=== PATIENT | female | born 1955 | race Caucasian/White ===

== ENCOUNTER 2016-08-13 14:17 | Emergency (ER) | payer OTHER ==
[~2016-08-13] VITALS: Ht 167.6 cm; Wt 90.0 kg
[~2016-08-13 14:17] MED LIST: GLUCTAB PO; LEVO100T4 PO; LISI-357 PO; MELA300T PO
[2016-08-13 14:20] VITALS: BP 154/83; PULSE 66; RESP 16; TEMP 98.6; O2SAT 99
[2016-08-13] MEDS ORDERED: LEVO50TA4 PO (14:56)
[2016-08-13] MEDS ORDERED: LISI-519 PO (14:56)
[2016-08-13] MEDS ORDERED: METF500T PO (14:56)
[2016-08-13] MEDS ORDERED: TETANUS/DIPHTHERIA TOXOID ADULT 0.5 ML VIAL IM ONE (15:30)
[2016-08-13] MEDS ORDERED: BUPIVACAINE HCL PF 0.5% 10 ML VIAL INFIL ONE (15:30)
[2016-08-13] MEDS ORDERED: LIDOCAINE HCL 1% 50 ML VIAL INFIL ONE (15:30)
--- NOTE | 2016-08-13 15:30 | PD ---
HPI Chief Complaint: Laceration/Skin Injury Time Seen by Provider: 15:22 Travel History International Travel<30 days: No Contact w/Intl Traveler<30days: No Traveled to known affect area: No History of Present Illness HPI 60-year-old female presents to the emergency room for evaluation of laceration to her right fifth finger that occurred just prior to arrival. Patient closed her finger in a hinged beach chair. There is a small laceration. Patient came straight to the emergency room. She has pain to the distal phalanx. States she would not have come but she is diabetic. Pain is minimal. She is able to move it. Unknown last tetanus. PFSH Past Medical History Hx Anticoagulant Therapy: No Anxiety: Yes Heart Rhythm Problems: No Cancer: No Cardiac Catheterization: No Cardiovascular Problems: Yes (HTN, CHOL) High Cholesterol: No Congestive Heart Failure: No Diabetes: Yes Patient Takes Glucophage: Yes Diminished Hearing: No Endocrine: No Genitourinary: No Hepatitis: No Hiatal Hernia: Yes Hypertension: Yes Immune Disorder: No Neurologic: No Psychiatric: No Reproductive: Yes Respiratory: No Immunizations Current: Yes Myocardial Infarction: No Thyroid Disease: Yes Tetanus Vaccination: Unknown Influenza Vaccination: No ?: Not Menopausal: Yes Ovarian Cysts: Yes Tubal Ligation: Yes Past Surgical History AICD: No Cardiac Surgery: No Coronary Artery Bypass Graft: No Ear Surgery: No Endocrine Surgery: No Eye Surgery: No Genitourinary Surgery: No Gynecologic Surgery: Yes (1999) Joint Replacement: No Pacemaker: No Thoracic Surgery: No Tonsillectomy: Yes Other Surgery: Yes Social History Alcohol Use: No 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 Afebrile. Ambulatory. SKIN: Focused skin assessment warm/dry. Moderate ecchymosis on the volar side. The nail matrix is overlying the proximal nail fold. HEAD: Normocephalic. EYES: No scleral icterus. No injection or drainage. NECK: Supple, trachea midline. No JVD or lymphadenopathy. CARDIOVASCULAR: Regular rate and rhythm without murmurs, gallops, or rubs. RESPIRATORY: Breath sounds equal bilaterally. No accessory muscle use. EXTREMITY: Right fifth finger is tender to palpation. Less than 2 second capillary refill distally. Limited range of motion of the finger secondary to pain. Data Data Last Documented VS Vital Signs Date Time Temp Pulse Resp B/P Pulse Ox O2 Delivery O2 Flow Rate FiO2 08/13/16 14:20 98.6 66 16 154/83 99 Orders Finger ([id number]) (08/13/16 ) Tetanus/Diphtheria Tox Adult (Tetanus/Di (08/13/16 15:30) Bupivacaine Pf 0.5% Inj (Marcaine Pf 0.5 (08/13/16 15:30) Lidocaine 1% Inj (50 Ml) (Xylocaine 1% I (08/13/16 15:30) MDM Medical Decision Making Medical Screen Exam Complete: Yes Emergency Medical Condition: Yes Medical Record Reviewed: Yes Differential Diagnosis Laceration, nail avulsion, sprain, fracture Narrative Course 60-year-old female presents to the emergency room for right fifth finger pain, swelling, and bleeding after injuring it just prior to arrival. Patient was [place] the beach [place] she closed her finger in a hinged beach chair. She had immediate pain distally. Physical exam reveals moderate ecchymosis of the distal phalanx and tenderness to palpation. The nail matrix is overlying the proximal nail fold. No other laceration. X-ray shows distal tuft fracture. Patient updated on tetanus and given her first doses Keflex in the emergency room. The nail matrix was replaced under the proximal nail fold, see procedure note for details. Patient discharged with Keflex and told to follow-up with a hand surgeon or return for worsening symptoms. She understands and agrees to plan. Procedures Procedure Narrative Nail repair LOCATION: Right fifth finger REPAIR: Digital block was performed using 0.5% bupivacaine and 1% lidocaine. The wound was copiously irrigated and explored without evidence of foreign body , tendon injury or neurovascular injury. The nail matrix was folded gently under the proximal nailfold using tweezers. A sterile dressing was applied. The patient was advised to keep the dressing clean and dry. Patient tolerated the procedure well. Diagnosis Primary Impression: Open fracture of tuft of distal phalanx of finger Qualified Code: S62.639B - Open fracture of tuft of distal phalanx of finger, initial encounter Referrals: Hand Surgeon Patient Instructions: Finger Fracture (ED), General Instructions Additional Instructions: Rest and drink plenty of fluids. Take Keflex as directed, until gone. Take ibuprofen with food as directed, as needed for pain. Elevate and apply ice to the affected area for 20 minutes at a time, as needed for pain and swelling. Follow-up with a hand surgeon. Return to the emergency room for worsening symptoms. Med/Other Pt SpecificInfo: Prescription(s) given Disposition: 01 DISCHARGE HOME Condition: Stable Ivanna Stanford Aug 13, 2016 15:30
--- NOTE | 2016-08-13 16:03 | RADRPT ---
EXAM DATE/TIME: 08/13/2016 15:30 [facility] COMPARISON: No previous studies available for comparison. INDICATIONS : Right 5th finger tip caught in folding chair MEDICAL HISTORY : Diabetes mellitus type II. SURGICAL HISTORY : None. ENCOUNTER: Initial ACUITY: 1 day PAIN SCORE: 5/10 LOCATION: Right 5th finger FINDINGS: There is a transverse fracture through the distal tuft of the fifth distal phalanx. Significant displ acement is not seen. The fracture is 1 mm in thickness. There is some degenerative change at the base of the first and fifth metacarpals. CONCLUSION: Acute transverse fracture through the distal tuft of the distal fifth phalanx. Ibrahima Bowman MD on August 13, 2016 at 15:58 Board Certified Radiologist. This report was verified electronically.
[2016-08-13] MEDS ORDERED: CEPH-460 PO (16:35)
[2016-08-13] MEDS ORDERED: CEPHALEXIN MONOHYDRATE 500 MG CAP PO ONE (16:45)
== END 2016-08-13 17:15 | disposition home or self-care (01) ==
LOC: PHEFT 14:17
DX: S62.639B Displaced fracture of distal phalanx of unspecified finger, initial encounter for open fracture (principal); I10 Essential (primary) hypertension; E78.00 Pure hypercholesterolemia, unspecified; E11.9 Type 2 diabetes mellitus without complications; E07.9 Disorder of thyroid, unspecified; Z88.0 Allergy status to penicillin; W22.8XXA Striking against or struck by other objects, initial encounter
CPT/HCPCS: 64450; 73140; 90471; 90714

== ENCOUNTER 2017-01-17 12:50 | Observation (INO) | payer OTHER ==
[~2017-01-17] VITALS: Ht 172.7 cm; Wt 87.2 kg
[2017-01-17] VITALS (9 sets, daily range): BP systolic 159–200; BP diastolic 72–104; PULSE 51–72; RESP 16–20; TEMP 98–98.8; O2SAT 95–99
[~2017-01-17 12:50] MED LIST changes: +CEPH-460 PO; -GLUCTAB PO; -LEVO100T4 PO; +LEVO50TA4 PO; -LISI-357 PO; +LISI-519 PO; -MELA300T PO; +METF500T PO
[2017-01-17] MEDS ORDERED: HYDROmorphone HCL PF 0.5 MG/0.5 ML SYRINGE IV PUSH ONE (13:15)
[2017-01-17] MEDS ORDERED: SODIUM CHLOR 0.9% 1000 ML INJ 1,000 ML IV ONE ×2 (13:15→15:45)
[2017-01-17] MEDS ORDERED: SODIUM CHLORIDE 0.9% FLUSH 10 ML FLUSH IV FLUSH PRN (13:15)
[2017-01-17] MEDS ORDERED: ONDANSETRON HCL 4 MG/2 ML VIAL IM ONE (13:15)
--- NOTE | 2017-01-17 13:18 | PD ---
HPI Chief Complaint: GI Complaint Time Seen by Provider: 13:03 Travel History International Travel<30 days: No Contact w/Intl Traveler<30days: No Traveled to known affect area: No History of Present Illness HPI This 61-year-old female is complaining of vomiting. She says she's been sick since Sunday and has been vomiting everything since then. She is unable to hold down liquids. She has not been able to retain her medication. She does have a history of hypertension and her blood pressure is elevated. There has not been any diarrhea. She says she's had fever as high as 101.8 she is having some epigastric abdominal pain. She had a laparoscopic gastric sleeve surgery in July 2015. There are no complications at the time of the surgery she has had an 80 pound weight loss since then. She does have a history of diabetes but her diabetes medications have been tapered recently. She is having pain in her back and somewhat diffuse myalgias. She has not had a bowel movement in several days. She does not recall having discomfort like this before. She says the pain is quite severe. She has not had a sore throat or cough PFSH Past Medical History Hx Anticoagulant Therapy: No Anxiety: Yes Heart Rhythm Problems: No Cancer: No Cardiac Catheterization: No Cardiovascular Problems: Yes (HTN, CHOL) High Cholesterol: No Congestive Heart Failure: No Diabetes: Yes Diminished Hearing: No Endocrine: No Genitourinary: No Hepatitis: No Hiatal Hernia: Yes Hypertension: Yes Immune Disorder: No Neurologic: No Psychiatric: No Reproductive: Yes Respiratory: No Immunizations Current: Yes Myocardial Infarction: No Thyroid Disease: Yes Menopausal: Yes Ovarian Cysts: Yes Tubal Ligation: Yes Past Surgical History AICD: No Cardiac Surgery: No Coronary Artery Bypass Graft: No Ear Surgery: No Endocrine Surgery: No Eye Surgery: No Genitourinary Surgery: No Gynecologic Surgery: Yes (1999) Joint Replacement: No Pacemaker: No Thoracic Surgery: No Tonsillectomy: Yes Other Surgery: Yes Social History Alcohol Use: No 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) Substance Use: No Allergies-Medications (Allergen,Severity, Reaction): Coded Allergies: penicillin G (Unverified Allergy, Mild, HIVES, 10/03/16) Reported Meds & Prescriptions Reported Meds & Active Scripts Active Reported Amlodipine (Amlodipine Besylate) 10 Mg Tab 10 Mg PO DAILY Metformin (Metformin HCl) 500 Mg Tab 500 Mg PO DAILY With a meal Levothyroxine (Levothyroxine Sodium) 50 Mcg Tab 50 Mcg PO DAILY Review of Systems General / Constitutional: Positive: Fever Eyes: No: Diploplia, Blurred Vision HENT: No: Headaches, Vertigo Cardiovascular: No: Chest Pain or Discomfort, Palpitations Respiratory: No: Cough, Shortness of Breath Gastrointestinal: Positive: Nausea, Vomiting, Abdominal Pain, No: Diarrhea, Constipation Genitourinary: No: Urgency, Frequency Musculoskeletal: No: Myalgias, Arthralgias Skin: No Rash, No Itching Neurologic: No: Weakness Endocrine: No: Heat Intolerance Hematologic/Lymphatic: No: Easy Bruising Physical Exam Narrative GENERAL: Well-developed female SKIN: Focused skin assessment warm/dry. HEAD: Atraumatic. Normocephalic. EYES: Pupils equal and round. No scleral icterus. No injection or drainage. ENT: No nasal bleeding or discharge. Mucous membranes pink and moist. NECK: Trachea midline. No JVD. CARDIOVASCULAR: Regular rate and rhythm. No murmur appreciated. RESPIRATORY: No accessory muscle use. Clear to auscultation. Breath sounds equal bilaterally. GASTROINTESTINAL: Abdomen soft, there is epigastric tenderness, nondistended. Hepatic and splenic margins not palpable. MUSCULOSKELETAL: No obvious deformities. No clubbing. No cyanosis. No edema. NEUROLOGICAL: Awake and alert. No obvious cranial nerve deficits. Motor grossly within normal limits. Normal speech. PSYCHIATRIC: Appropriate mood and affect; insight and judgment normal. Data Data Last Documented VS Vital Signs Date Time Temp Pulse Resp B/P (MAP) Pulse Ox O2 Delivery O2 Flow Rate FiO2 01/17/17 14:11 96 Room Air 01/17/17 13:45 52 18 159/99 (119) 01/17/17 12:54 98.2 Orders Orders Complete Blood Count With Diff (01/17/17 13:10) Comprehensive Metabolic Panel (01/17/17 13:10) Lipase (01/17/17 13:10) Urinalysis - C+S If Indicated (01/17/17 13:10) Ct Abd/Pel W Iv Contrast(Rout) (01/17/17 13:10) Iv Access Insert/Monitor (01/17/17 13:10) Ecg Monitoring (01/17/17 13:10) Oximetry (01/17/17 13:10) Sodium Chloride 0.9% Flush (Ns Flush) (01/17/17 13:15) Ondansetron Inj (Zofran Inj) (01/17/17 13:15) Sodium Chlor 0.9% 1000 Ml Inj (Ns 1000 M (01/17/17 13:15) Hydromorphone Pf Inj (Dilaudid Pf Inj) (01/17/17 13:15) Influenzae A/B Antigen (01/17/17 13:14) Oral Contrast - Adult (01/17/17 13:17) Diatrizoate Liq ( Gastroview Liq) (01/17/17 13:35) Prochlorperazine Inj (Compazine Inj) (01/17/17 14:00) Electrocardiogram (01/17/17 13:47) Chest, Single Ap (01/17/17 13:47) Ondansetron Inj (Zofran Inj) (01/17/17 14:00) Iodixanol 320 Inj (Rad Ct) (Visipaque 32 (01/17/17 15:03) Sodium Chlor 0.9% 1000 Ml Inj (Ns 1000 M (01/17/17 15:45) Us Abdomen Gallbladder (01/17/17 15:36) Labs Laboratory Tests Test 01/17/17 13:20 01/17/17 13:25 Urine Collection Type CLEAN CATCH Urine Color YELLOW Urine Turbidity CLEAR Urine pH 6.0 Urine Specific Reynolds 1.020 Urine Protein 100 mg/dL Urine Glucose (UA) NEG mg/dL Urine Ketones 40 mg/dL Urine Occult Blood TRACE Urine Nitrite NEG Urine Bilirubin NEG Urine Leukocyte Esterase NEG Urine RBC 0-3 /hpf Urine WBC 0-2 /hpf Urine Squamous Epithelial Cells > 8 /hpf Urine Transitional Epithelial Cells 6-8 /hpf Urine Bacteria FEW /hpf Urine Mucus FEW /lpf Microscopic Urinalysis Comment CULT NOT INDICATED Urine Collection Time 13:20 White Blood Count 12.4 TH/MM3 Red Blood Count 4.81 MIL/MM3 Hemoglobin 14.6 GM/DL Hematocrit 43.2 % Mean Corpuscular Volume 89.7 FL Mean Corpuscular Hemoglobin 30.3 PG Mean Corpuscular Hemoglobin Concent 33.7 % Red Cell Distribution Width 12.0 % Platelet Count 333 TH/MM3 Mean Platelet Volume 7.9 FL Neutrophils (%) (Auto) 85.6 % Lymphocytes (%) (Auto) 11.0 % Monocytes (%) (Auto) 2.9 % Eosinophils (%) (Auto) 0.1 % Basophils (%) (Auto) 0.4 % Neutrophils # (Auto) 10.6 TH/MM3 Lymphocytes # (Auto) 1.4 TH/MM3 Monocytes # (Auto) 0.4 TH/MM3 Eosinophils # (Auto) 0.0 TH/MM3 Basophils # (Auto) 0.0 TH/MM3 CBC Comment DIFF FINAL Differential Comment Blood Urea Nitrogen 25 MG/DL Creatinine 1.50 MG/DL Random Glucose 153 MG/DL Total Protein 8.8 GM/DL Albumin 3.9 GM/DL Calcium Level 9.7 MG/DL Alkaline Phosphatase 69 U/L Aspartate Amino Transf (AST/SGOT) 20 U/L Alanine Aminotransferase (ALT/SGPT) 24 U/L Total Bilirubin 1.0 MG/DL Sodium Level 137 MEQ/L Potassium Level 3.7 MEQ/L Chloride Level 100 MEQ/L Carbon Dioxide Level 25.0 MEQ/L Anion Gap 12 MEQ/L Estimat Glomerular Filtration Rate 35 ML/MIN Lipase 247 U/L MDM Medical Decision Making Medical Screen Exam Complete: Yes Emergency Medical Condition: Yes Medical Record Reviewed: Yes Differential Diagnosis Differential includes ileus, cholecystitis, gastritis Narrative Course Hemoglobin is 14.6. White count is 12.4. BUNs is 25 with creatinine of 1.5. CT scan of the abdomen and pelvis shows mild colonic dilatation otherwise negative. Patient was given some IV fluids. She was given 0.5 mg of Dilaudid with improvement in her pain. She did not respond to 4 mg of Zofran and was given Compazine which seems to help the nausea. Case was discussed with Dr. Lombardi and he recommends that we obtain ultrasound to more definitively rule out biliary disease Diagnosis Primary Impression: Acute vomiting Jovanny Monge MD Jan 17, 2017 13:18
[2017-01-17] MEDS ORDERED: DIATRIZOATE MEGLUM/DIATRIZOATE SOD 9 ML CUP ONE (13:35)
[2017-01-17 13:39] LABS: BLOOD, URINE TRACE (NEG); GLUCOSE,URINE NEG (NEG); KETONE, URINE 40 mg/dL (NEG); NITRITE,URINE NEG (NEG)
[2017-01-17 13:40] LABS: AUTOMATED NEUTROPHIL # 10.6 TH/MM3 (1.8-7.7); BASOPHIL % 0.4 % (0.0-2.0); EOSINOPHIL % 0.1 % (0.0-4.0); HEMATOCRIT 43.2 % (35.0-46.0); HEMO FLAGS DIFF FINAL; LYMPHOCYTE # 1.4 TH/MM3 (1.0-4.8); MEAN CELL VOLUME 89.7 FL (80.0-100.0); MEAN CORPUSCULAR HEMOGLOBIN 30.3 PG (27.0-34.0); MEAN CORPUSCULAR HGB CONC 33.7 % (32.0-36.0); MONO % 2.9 % (0.0-8.0); NEUT % 85.6 % (16.0-70.0); PLATELET COUNT 333 TH/MM3 (150-450); RED BLOOD COUNT 4.81 MIL/MM3 (4.00-5.30); WHITE BLOOD COUNT 12.4 TH/MM3 (4.0-11.0)
[2017-01-17 13:43] LABS: CHLORIDE 100 MEQ/L (98-107); POTASSIUM 3.7 MEQ/L (3.5-5.1); SODIUM (NA) 137 MEQ/L (136-145)
[2017-01-17 13:47] LABS: ANION GAP 12 MEQ/L (5-15); BLOOD UREA NITROGEN 25 MG/DL (7-18)
[2017-01-17 13:50] LABS: ALT (GPT) 24 U/L (10-53); AST (GOT) 20 U/L (15-37); GLOMERULAR FILTRATION RATE 35 ML/MIN (>89)
[2017-01-17 13:53] LABS: ALKALINE PHOSPHATASE 69 U/L (45-117)
[2017-01-17 13:55] LABS: METHOD OF COLLECTION CLEAN CATCH; MUCUS URINE FEW /lpf (OCC); RBC, URINE 0-3 /hpf (0-3); SQUAMOUS EPITHELIAL CELL URINE > 8 /hpf (0-5); URINE COLOR YELLOW (YELLW/STRAW); WBC, URINE 0-2 /hpf (0-5)
[2017-01-17 13:56] LABS: BACTERIA, URINE FEW /hpf; COMMENT (UR) CULT NOT INDICATED; CULTURE IF INDICATED CULT NOT INDICATED
[2017-01-17] MEDS ORDERED: ONDANSETRON HCL 4 MG/2 ML VIAL IV PUSH ONE (14:00)
[2017-01-17] MEDS ORDERED: PROCHLORPERAZINE INJ 10 MG/2 ML VIAL IV PUSH ONE (14:00)
[2017-01-17] MEDS ORDERED: AMLO10TA2 PO (14:19)
--- NOTE | 2017-01-17 14:32 | RADRPT ---
EXAM DATE/TIME: 01/17/2017 14:00 [facility] COMPARISON: CHEST SINGLE AP, November 20, 2011, 11:41. INDICATIONS : Short of breath, nausea. MEDICAL HISTORY : None. SURGICAL HISTORY : None. ENCOUNTER: Initial ACUITY: 3 days PAIN SCORE: 0/10 LOCATION: Bilateral chest FINDINGS: Granuloma left midlung. Right lung clear.. The cardiomediastinal contours are unremarkable. Osseou s structures are intact. CONCLUSION: No acute disease. Renny George MD FACR on January 17, 2017 at 14:29 Board Certified Radiologist. This report was verified electronically.
[2017-01-17] MEDS ORDERED: IODIXANOL 320 MG/ML 10 ML VIAL (for Rad CT) IVCONTRAST ONE (15:03)
--- NOTE | 2017-01-17 15:14 | RADRPT ---
EXAM DATE/TIME: 01/17/2017 14:57 [facility] COMPARISON: CT ABDOMEN & PELVIS W CONTRAST, August 25, 2011, 0:09. INDICATIONS : Epigastric pain, nausea, vomiting and constipation. IV CONTRAST: 50 cc Visipaque (iodixanol) IV ORAL CONTRAST: Partial prescribed oral contrast ingested. RADIATION DOSE: 13.89 CTDIvol (mGy) MEDICAL HISTORY : Diabetes mellitus type 2. Hypertension. Hernia, hiatal. SURGICAL HISTORY : Tubal ligation. Gastric sleeve. ENCOUNTER: Initial ACUITY: 4 - 6 days PAIN SCALE: 7/10 LOCATION: Epigastric TECHNIQUE: Volumetric scanning of the abdomen and pelvis was performed. Using automated exposure control and ad justment of the mA and/or kV according to patient size, radiation dose was kept as low as reasonably achievable to obtain optimal diagnostic quality images. DICOM format image data is available electro nically for review and comparison. FINDINGS: The lung base is are clear. The liver, spleen, pancreas unremarkable. Previous gastric surgery is noted. The hepatic flexure is sitting between the edge of the liver and the abdominal wall. There are no inflammatory changes evident Small bowel gas pattern is unremarkable Right and left kidneys appear normal Renal glands unremarkable Pelvic contents showing fibroid uterus. Degenerative changes are present in the lumbar spine. CONCLUSION: Mild colonic dilatation probably in ascending and transverse colon Otherwise unremarkable History of previous gastric surgery. Renny George MD FACR on January 17, 2017 at 15:10 Board Certified Radiologist. This report was verified electronically.
--- NOTE | 2017-01-17 16:45 | PD ---
Physical Exam Date Seen by Provider: Jan 17, 2017 Data Data Last Documented VS Vital Signs Date Time Temp Pulse Resp B/P (MAP) Pulse Ox O2 Delivery O2 Flow Rate FiO2 01/17/17 16:19 52 18 183/91 (121) 98 Room Air 01/17/17 12:54 98.2 Orders Orders Complete Blood Count With Diff (01/17/17 13:10) Comprehensive Metabolic Panel (01/17/17 13:10) Lipase (01/17/17 13:10) Urinalysis - C+S If Indicated (01/17/17 13:10) Ct Abd/Pel W Iv Contrast(Rout) (01/17/17 13:10) Iv Access Insert/Monitor (01/17/17 13:10) Ecg Monitoring (01/17/17 13:10) Oximetry (01/17/17 13:10) Sodium Chloride 0.9% Flush (Ns Flush) (01/17/17 13:15) Ondansetron Inj (Zofran Inj) (01/17/17 13:15) Sodium Chlor 0.9% 1000 Ml Inj (Ns 1000 M (01/17/17 13:15) Hydromorphone Pf Inj (Dilaudid Pf Inj) (01/17/17 13:15) Influenzae A/B Antigen (01/17/17 13:14) Oral Contrast - Adult (01/17/17 13:17) Diatrizoate Liq ( Gastroview Liq) (01/17/17 13:35) Prochlorperazine Inj (Compazine Inj) (01/17/17 14:00) Electrocardiogram (01/17/17 13:47) Chest, Single Ap (01/17/17 13:47) Ondansetron Inj (Zofran Inj) (01/17/17 14:00) Iodixanol 320 Inj (Rad Ct) (Visipaque 32 (01/17/17 15:03) Sodium Chlor 0.9% 1000 Ml Inj (Ns 1000 M (01/17/17 15:45) Us Abdomen Gallbladder (01/17/17 15:36) Amlodipine (Norvasc) (01/17/17 16:30) Biliary Quantitative (Hida) (01/17/17 ) Consult General Surgery (01/17/17 ) Admit Order (Ed Use Only) (01/17/17 17:19) (Hub Use Only)Inp Phy Cons/Ref (01/17/17 ) Labs Laboratory Tests Test 01/17/17 13:20 01/17/17 13:25 Urine Collection Type CLEAN CATCH Urine Color YELLOW Urine Turbidity CLEAR Urine pH 6.0 Urine Specific Eaton 1.020 Urine Protein 100 mg/dL Urine Glucose (UA) NEG mg/dL Urine Ketones 40 mg/dL Urine Occult Blood TRACE Urine Nitrite NEG Urine Bilirubin NEG Urine Leukocyte Esterase NEG Urine RBC 0-3 /hpf Urine WBC 0-2 /hpf Urine Squamous Epithelial Cells > 8 /hpf Urine Transitional Epithelial Cells 6-8 /hpf Urine Bacteria FEW /hpf Urine Mucus FEW /lpf Microscopic Urinalysis Comment CULT NOT INDICATED Urine Collection Time 13:20 White Blood Count 12.4 TH/MM3 Red Blood Count 4.81 MIL/MM3 Hemoglobin 14.6 GM/DL Hematocrit 43.2 % Mean Corpuscular Volume 89.7 FL Mean Corpuscular Hemoglobin 30.3 PG Mean Corpuscular Hemoglobin Concent 33.7 % Red Cell Distribution Width 12.0 % Platelet Count 333 TH/MM3 Mean Platelet Volume 7.9 FL Neutrophils (%) (Auto) 85.6 % Lymphocytes (%) (Auto) 11.0 % Monocytes (%) (Auto) 2.9 % Eosinophils (%) (Auto) 0.1 % Basophils (%) (Auto) 0.4 % Neutrophils # (Auto) 10.6 TH/MM3 Lymphocytes # (Auto) 1.4 TH/MM3 Monocytes # (Auto) 0.4 TH/MM3 Eosinophils # (Auto) 0.0 TH/MM3 Basophils # (Auto) 0.0 TH/MM3 CBC Comment DIFF FINAL Differential Comment Blood Urea Nitrogen 25 MG/DL Creatinine 1.50 MG/DL Random Glucose 153 MG/DL Total Protein 8.8 GM/DL Albumin 3.9 GM/DL Calcium Level 9.7 MG/DL Alkaline Phosphatase 69 U/L Aspartate Amino Transf (AST/SGOT) 20 U/L Alanine Aminotransferase (ALT/SGPT) 24 U/L Total Bilirubin 1.0 MG/DL Sodium Level 137 MEQ/L Potassium Level 3.7 MEQ/L Chloride Level 100 MEQ/L Carbon Dioxide Level 25.0 MEQ/L Anion Gap 12 MEQ/L Estimat Glomerular Filtration Rate 35 ML/MIN Lipase 247 U/L [facility] Medical Record Reviewed: Yes Supervised Visit with SUMANTH: No Interpretation(s) Vital Signs Date Time Temp Pulse Resp B/P (MAP) Pulse Ox O2 Delivery O2 Flow Rate FiO2 01/17/17 16:19 52 18 183/91 (121) 98 Room Air 01/17/17 15:10 72 18 185/75 (111) 95 Room Air 01/17/17 14:11 96 Room Air 01/17/17 14:09 18 01/17/17 13:45 52 18 159/99 (119) 96 Room Air 01/17/17 12:54 98.2 56 16 200/104 (136) 99 Laboratory Tests Test 01/17/17 13:20 01/17/17 13:25 Urine Collection Type CLEAN CATCH Urine Color YELLOW (YELLW/STRAW) Urine Turbidity CLEAR (CLEAR) Urine pH 6.0 (5.0-8.5) Urine Specific Eaton 1.020 (1.002-1.035) Urine Protein 100 mg/dL (NEG-TRACE) Urine Glucose (UA) NEG mg/dL (NEG) Urine Ketones 40 mg/dL (NEG) Urine Occult Blood TRACE (NEG) Urine Nitrite NEG (NEG) Urine Bilirubin NEG (NEG) Urine Leukocyte Esterase NEG (NEG) Urine RBC 0-3 /hpf (0-3) Urine WBC 0-2 /hpf (0-5) Urine Squamous Epithelial Cells > 8 /hpf (0-5) Urine Transitional Epithelial Cells 6-8 /hpf (NONE) Urine Bacteria FEW /hpf (NONE) Urine Mucus FEW /lpf (OCC) Microscopic Urinalysis Comment CULT NOT INDICATED Urine Collection Time 13:20 White Blood Count 12.4 TH/MM3 (4.0-11.0) Red Blood Count 4.81 MIL/MM3 (4.00-5.30) Hemoglobin 14.6 GM/DL (11.6-15.3) Hematocrit 43.2 % (35.0-46.0) Mean Corpuscular Volume 89.7 FL (80.0-100.0) Mean Corpuscular Hemoglobin 30.3 PG (27.0-34.0) Mean Corpuscular Hemoglobin Concent 33.7 % (32.0-36.0) Red Cell Distribution Width 12.0 % (11.6-17.2) Platelet Count 333 TH/MM3 (150-450) Mean Platelet Volume 7.9 FL (7.0-11.0) Neutrophils (%) (Auto) 85.6 % (16.0-70.0) Lymphocytes (%) (Auto) 11.0 % (9.0-44.0) Monocytes (%) (Auto) 2.9 % (0.0-8.0) Eosinophils (%) (Auto) 0.1 % (0.0-4.0) Basophils (%) (Auto) 0.4 % (0.0-2.0) Neutrophils # (Auto) 10.6 TH/MM3 (1.8-7.7) Lymphocytes # (Auto) 1.4 TH/MM3 (1.0-4.8) Monocytes # (Auto) 0.4 TH/MM3 (0-0.9) Eosinophils # (Auto) 0.0 TH/MM3 (0-0.4) Basophils # (Auto) 0.0 TH/MM3 (0-0.2) CBC Comment DIFF FINAL Differential Comment Blood Urea Nitrogen 25 MG/DL (7-18) Creatinine 1.50 MG/DL (0.50-1.00) Random Glucose 153 MG/DL (74-106) Total Protein 8.8 GM/DL (6.4-8.2) Albumin 3.9 GM/DL (3.4-5.0) Calcium Level 9.7 MG/DL (8.5-10.1) Alkaline Phosphatase 69 U/L (45-117) Aspartate Amino Transf (AST/SGOT) 20 U/L (15-37) Alanine Aminotransferase (ALT/SGPT) 24 U/L (10-53) Total Bilirubin 1.0 MG/DL (0.2-1.0) Sodium Level 137 MEQ/L (136-145) Potassium Level 3.7 MEQ/L (3.5-5.1) Chloride Level 100 MEQ/L (98-107) Carbon Dioxide Level 25.0 MEQ/L (21.0-32.0) Anion Gap 12 MEQ/L (5-15) Estimat Glomerular Filtration Rate 35 ML/MIN (>89) Lipase 247 U/L (73-393) Last Impressions Chest X-Ray 01/17/17 1347 Signed Impressions: Service Date/Time: Tuesday, January 17, 2017 14:00 - CONCLUSION: No acute disease. Renny George MD FACR Abdomen/Pelvis CT 01/17/17 1310 Signed Impressions: Service Date/Time: Tuesday, January 17, 2017 14:57 - CONCLUSION: Mild colonic dilatation probably in ascending and transverse colon Otherwise unremarkable History of previous gastric surgery. Renny George MD FACR Narrative Course Patient signed out to me by Dr. Marrufo at change of shift, patient pending US of gallbladder and discussion with Dr. Lombardi her surgeon. Last Impressions Gall Bladder Ultrasound 01/17/17 1536 Signed Impressions: Service Date/Time: Tuesday, January 17, 2017 15:57 - CONCLUSION: Normal examination. Ibrahima Klein MD Chest X-Ray 01/17/17 1347 Signed Impressions: Service Date/Time: Tuesday, January 17, 2017 14:00 - CONCLUSION: No acute disease. Renny George MD FACR Abdomen/Pelvis CT 01/17/17 1310 Signed Impressions: Service Date/Time: Tuesday, January 17, 2017 14:57 - CONCLUSION: Mild colonic dilatation probably in ascending and transverse colon Otherwise unremarkable History of previous gastric surgery. Renny George MD FACR CT's and US unremarkable, patient reports that she is not feeling any better. Call made to Dr. Lombardi as well as Dr. Gupta's for observation for intractable abdominal pain with intractable nausea. Case reviewed with Dr. Lombardi who requested HIDA scan to be ordered. Plan to obs for intractable abdominal scan with intractable nausea and vomiting Case reviewed with Dr. Galicia who accepts pt to service Diagnosis Primary Impression: Acute vomiting Additional Impressions: Dehydration Abdominal pain Admitting Information Admitting Physician Requests: Observation Janette Burns DO Jan 17, 2017 16:45
--- NOTE | 2017-01-17 16:58 | RADRPT ---
EXAM DATE/TIME: 01/17/2017 15:57 [facility] COMPARISON: No previous studies available for comparison. INDICATIONS : Nausea/vomiting. MEDICAL HISTORY : Hypercholesterolemia. Hypertension. Hernia, hiatal. Thyroid disease. Ovarian cysts. Diabetes. Anxiety . SURGICAL HISTORY : Tubal ligation. Gastric sleeve. ENCOUNTER: Initial ACUITY: 3 days PAIN SCORE: 2/10 LOCATION: Right upper quadrant MEASUREMENTS: LIVER: 12.8 cm length COMMON DUCT: 6 mm RIGHT KIDNEY: 12.2 x 4.7 x 4.8 cm FINDINGS: LIVER: Normal echotexture without focal lesion or ductal dilatation. COMMON DUCT: No intraluminal mass or stone visualized. GALLBLADDER: Contains no stones, demonstrates no wall thickening or pericholecystic fluid. PANCREAS: The visualized portions are within normal limits. RIGHT KIDNEY: No evidence of hydronephrosis, stone, or mass. CONCLUSION: Normal examination. Ibrahima Klein MD on January 17, 2017 at 16:55 Board Certified Radiologist. This report was verified electronically.
[2017-01-17] MEDS ORDERED: PROCHLORPERAZINE INJ 10 MG/2 ML VIAL IV PRN (17:45)
[2017-01-17] MEDS ORDERED: ACETAMINOPHEN 325 MG TAB PO PRN (18:00)
[2017-01-17] MEDS: SODIUM CHLOR 0.9% 1000 ML INJ 1,000 ML IV SCH (19:02)
[2017-01-17] MEDS ORDERED: ENALAPRILAT 1.25 MG/ML VIAL IV PUSH PRN (20:30)
[2017-01-17] MEDS ORDERED: HYDROmorphone HCL PF 0.5 MG/0.5 ML SYRINGE IV PUSH PRN (20:30)
--- NOTE | 2017-01-17 20:37 | HHI.HP ---
HPI Service [facility] Hospitalists Primary Care Physician Aryan Galicia MD, PhD Admission Diagnosis Intractable abdominal pain with nausea and vomiting Chief Complaint: Intractable nausea vomiting despite outpatient medication Travel History International Travel<30 Days: No Contact w/Intl Traveler <30 Da: No Traveled to Known Affected Are: No History of Present Illness This 61-year-old female with history of lupus, diabetes, status post gastric sleeve in 2016 who is complaining of vomiting. She says she's been sick since Sunday and has been vomiting everything since then. She is unable to hold down liquids. She has not been able to retain her medication and has failed treatment with Phenergan and Zofran as outpatient. There has not been any diarrhea. She says she's had fever as high as 101.8. she is having some mild- to-moderate epigastric abdominal pain. She had a laparoscopic gastric sleeve surgery in July 2015. There are no complications at the time of the surgery she has had an 80 pound weight loss since then. She does have a history of diabetes but her diabetes medications have been tapered since the surgery. She is having pain in her back and somewhat diffuse myalgias. She has not had a bowel movement in several days but has not had any solid food intake. She does not recall having discomfort like this before. She says the pain is quite severe at times and crampy in nature. She has not had a sore throat or cough. No unusual food intake. No rales or undercooked food ingestion. No foreign travel. No others in the household have similar illness. Initial workup here noted for slight elevation of white blood cell count and creatinine elevated at 1.5 above her baseline which is around 0.9. She has been given Compazine, Dilaudid and IV fluids. The Compazine seems to have helped her nausea quite a bit. States that she feels much better tonight and is no longer having dry heaves. She has had good output put of urine since being on the IV fluids she reports. Ultrasound of gallbladder, CT of abdomen and pelvis and chest x-ray revealed no obvious acute findings. Review of Systems Constitutional: COMPLAINS OF: Fatigue, Fever, Weight loss, Chills, Change in appetite Eyes: DENIES: Blurred vision, Diplopia, Eye inflammation, Eye pain, Vision loss , Photosensitivity, Double Vision Ears, nose, mouth, throat: COMPLAINS OF: Hearing loss, DENIES: Tinnitus, Vertigo, Nasal discharge, Oral lesions, Throat pain, Hoarseness, Ear Pain, Running Nose, Epistaxis, Sinus Pain, Toothache, Odynophagia Respiratory: DENIES: Apneas, Cough, Snoring, Wheezing, Hemoptysis, Sputum production, Shortness of breath Cardiovascular: DENIES: Chest pain, Palpitations, Syncope, Dyspnea on Exertion , PND, Lower Extremity Edema, Orthopnea, Claudication Gastrointestinal: COMPLAINS OF: Abdominal pain, GERD, Nausea, Vomiting, DENIES : Black stools, Bloody stools, BRB per rectum, Constipation, Diarrhea, Reflux, Difficulty Swallowing, Anorexia, See HPI Musculoskeletal: COMPLAINS OF: Joint pain Integumentary: DENIES: Abnormal pigmentation, Pruritus, Rash, Nail changes, Breast masses, Breast skin changes, Nipple discharge Hematologic/lymphatic: DENIES: Bruising, Lymphadenopathy Immunologic/allergic: DENIES: Eczema, Urticaria Psychiatric: COMPLAINS OF: Anxiety Past Family Social History Past Medical History GERD anxiety lumbar degenerative disc disease with disc bulge depression type 2 diabetes but diet controlled since her bariatric surgery Dysphasia fatty liver Hypertension Hyperlipidemia Hypothyroidism Obesity Obstructive sleep apnea PVCs Lakeisha D deficiency Past Surgical History Colonoscopy most recently done February 2015 which demonstrated some diminutive polyps EGD was recently done September 2015 which demonstrated gastric sleeve postsurgical changes and narrowing at proximal and distal in the sleeve suture line, hiatal hernia Laparoscopic vertical sleeve surgery July 2015 Ovarian cystectomy for benign lesion with lysis of adhesions Tonsillectomy and adenoidectomy Bilateral tubal ligation Hernia repair Reported Medications Motor pain 2.5 mg daily Levothyroxine 125 g daily Metformin 1000 mg half pill daily Multivitamin once a day Ondansetron 4 mg every 6 when necessary nausea vomiting Phenergan 25 mg by mouth every 6 when necessary nausea vomiting Allergies: Coded Allergies: penicillin G (Unverified Allergy, Mild, HIVES, 10/03/16) Family History Mother had acute IA, osteoporosis, psoriasis, prior stroke and depression Also family history of hypertension, lupus, RA and diabetes Social History and Lives locally with her family Never smoked rarely uses alcohol Denies illicit drug use Physical Exam Vital Signs Vital Signs Date Time Temp Pulse Resp B/P (MAP) Pulse Ox O2 Delivery O2 Flow Rate FiO2 01/17/17 18:52 98.8 51 20 186/86 (119) 97 01/17/17 18:28 98.0 58 18 161/72 (101) 98 01/17/17 17:31 58 19 176/91 (119) 98 Room Air 01/17/17 16:19 52 18 183/91 (121) 98 Room Air 01/17/17 15:10 72 18 185/75 (111) 95 Room Air 01/17/17 14:11 96 Room Air 01/17/17 14:09 18 01/17/17 13:45 52 18 159/99 (119) 96 Room Air 01/17/17 12:54 98.2 56 16 200/104 (136) 99 Physical Exam GENERAL: This is a well-nourished, well-developed patient, in no apparent distress. Alert and oriented. SKIN: Slight erythematous confluent bilateral malar rash consistent with her baseline HEAD: Atraumatic. Normocephalic. No temporal or scalp tenderness. EYES: Pupils equal round and reactive. Extraocular motions intact. No scleral icterus. No injection or drainage. ENT: Nose without bleeding, purulent drainage or septal hematoma. Airway patent. NECK: Trachea midline. No JVD or lymphadenopathy. Supple, nontender, no meningeal signs. CARDIOVASCULAR: Regular rate and rhythm without murmurs, gallops, or rubs. RESPIRATORY: Clear to auscultation. Breath sounds equal bilaterally. No wheezes , rales, or rhonchi. GASTROINTESTINAL: Abdomen soft, nondistended. Mild tenderness in the epigastrium but no guarding or rebound. Bowel sounds normal. No hepato- splenomegaly, or palpable masses. MUSCULOSKELETAL: Extremities without clubbing, cyanosis, or edema. No joint tenderness, effusion, or edema noted. No calf tenderness. NEUROLOGICAL: Awake and alert. Cranial nerves II through XII intact. Motor and sensory grossly within normal limits. Five out of 5 muscle strength in all muscle groups. Normal speech. Laboratory Laboratory Tests Test 01/17/17 13:20 01/17/17 13:25 Urine Collection Type CLEAN CATCH Urine Color YELLOW Urine Turbidity CLEAR Urine pH 6.0 Urine Specific Richardson 1.020 Urine Protein 100 Urine Glucose (UA) NEG Urine Ketones 40 Urine Occult Blood TRACE Urine Nitrite NEG Urine Bilirubin NEG Urine Leukocyte Esterase NEG Urine RBC 0-3 Urine WBC 0-2 Urine Squamous Epithelial Cells > 8 Urine Transitional Epithelial Cells 6-8 Urine Bacteria FEW Urine Mucus FEW Microscopic Urinalysis Comment CULT NOT INDICATED Urine Collection Time 13:20 White Blood Count 12.4 Red Blood Count 4.81 Hemoglobin 14.6 Hematocrit 43.2 Mean Corpuscular Volume 89.7 Mean Corpuscular Hemoglobin 30.3 Mean Corpuscular Hemoglobin Concent 33.7 Red Cell Distribution Width 12.0 Platelet Count 333 Mean Platelet Volume 7.9 Neutrophils (%) (Auto) 85.6 Lymphocytes (%) (Auto) 11.0 Monocytes (%) (Auto) 2.9 Eosinophils (%) (Auto) 0.1 Basophils (%) (Auto) 0.4 Neutrophils # (Auto) 10.6 Lymphocytes # (Auto) 1.4 Monocytes # (Auto) 0.4 Eosinophils # (Auto) 0.0 Basophils # (Auto) 0.0 CBC Comment DIFF FINAL Differential Comment Blood Urea Nitrogen 25 Creatinine 1.50 Random Glucose 153 Total Protein 8.8 Albumin 3.9 Calcium Level 9.7 Alkaline Phosphatase 69 Aspartate Amino Transf (AST/SGOT) 20 Alanine Aminotransferase (ALT/SGPT) 24 Total Bilirubin 1.0 Sodium Level 137 Potassium Level 3.7 Chloride Level 100 Carbon Dioxide Level 25.0 Anion Gap 12 Estimat Glomerular Filtration Rate 35 Lipase 247 Date/Time Source Procedure Growth Status 01/17/17 13:25 Nasal Washing Influenza Types A,B Antigen (GEETHA) - Final NEGATIVE FOR FLU A AND B ANTIGEN.... Complete Result Diagram: 01/17/17 1325 01/17/17 1325 Imaging Last 72 hours Impressions Gall Bladder Ultrasound 01/17/17 1536 Signed Impressions: Service Date/Time: Tuesday, January 17, 2017 15:57 - CONCLUSION: Normal examination. Ibrahima Klein MD Chest X-Ray 01/17/17 1347 Signed Impressions: Service Date/Time: Tuesday, January 17, 2017 14:00 - CONCLUSION: No acute disease. Renny George MD FACR Abdomen/Pelvis CT 01/17/17 1310 Signed Impressions: Service Date/Time: Tuesday, January 17, 2017 14:57 - CONCLUSION: Mild colonic dilatation probably in ascending and transverse colon Otherwise unremarkable History of previous gastric surgery. Renny George MD FACR Caprini VTE Risk Assessment Caprini VTE Risk Assessment: Mod/High Risk (score >= 2) Caprini Risk Assessment Model Point Value = 1 Point Value = 2 Point Value = 3 Point Value = 5 Age 41-60 Minor surgery BMI > 25 kg/m2 Swollen legs Varicose veins or History of unexplained or recurrent spontaneous Oral contraceptives or hormone replacement Sepsis (< 1 month) Serious lung disease, including pneumonia (< 1 month) Abnormal pulmonary function Acute myocardial infarction Congestive heart failure (< 1 month) History of inflammatory bowel disease Medical patient at bed rest Age 61-74 Arthroscopic surgery Major open surgery (> 45 min) Laparoscopic surgery (> 45 min) Malignancy Confined to bed (> 72 hours) Immobilizing plaster cast Central venous access Age >= 75 History of VTE Family history of VTE Factor V Leiden Prothrombin [id number] Lupus anticoagulant Anticardiolipin antibodies Elevated serum homocysteine Heparin-induced thrombocytopenia Other congenital or acquired thrombophilia Stroke (< 1 month) Elective arthroplasty Hip, pelvis, or leg fracture Acute spinal cord injury (< 1 month) Prophylaxis Regimen Total Risk Factor Score Risk Level Prophylaxis Regimen 0-1 Low Early ambulation 2 Moderate Order ONE of the following: *Sequential Compression Device (SCD) *Heparin 5000 units SQ BID 3-4 Higher Order ONE of the following medications: *Heparin 5000 units SQ TID *Enoxaparin/Lovenox 40 mg SQ daily (WT < 150 kg, CrCl > 30 mL/min) *Enoxaparin/Lovenox 30 mg SQ daily (WT < 150 kg, CrCl > 10-29 mL/min) *Enoxaparin/Lovenox 30 mg SQ BID (WT < 150 kg, CrCl > 30 mL/min) AND/OR *Sequential Compression Device (SCD) 5 or more Highest Order ONE of the following medications: *Heparin 5000 units SQ TID (Preferred with Epidurals) *Enoxaparin/Lovenox 40 mg SQ daily (WT < 150 kg, CrCl > 30 mL/min) *Enoxaparin/Lovenox 30 mg SQ daily (WT < 150 kg, CrCl > 10-29 mL/min) *Enoxaparin/Lovenox 30 mg SQ BID (WT < 150 kg, CrCl > 30 mL/min) AND *Sequential Compression Device (SCD) Assessment and Plan Problem List: (1) Intractable nausea and vomiting ICD Codes: R11.2 - Nausea with vomiting, unspecified Status: Acute Plan: HEENT to be improved with IV fluids and Compazine. Continue current therapy. Case has been discussed with Dr. Lombardi by ER providers per their report. He has recommended HIDA scan however her liver studies of thus far been okay. (2) Type 2 diabetes mellitus ICD Codes: E11.9 - Type 2 diabetes mellitus without complications Status: Chronic Plan: Has been well controlled since her bariatric surgery induced weight loss with an A1c around 5.9 in August of this year. We'll provide sliding scale insulin as needed. (3) Hypertension ICD Codes: I10 - Essential (primary) hypertension Status: Chronic Plan: BP has been a bit high as she has been in pain and has not been able to take her blood pressure medication at home. We'll continue to follow and use IV enalapril as needed. (4) Dehydration ICD Codes: E86.0 - Dehydration Status: Acute Plan: Likely associated with the protracted nausea and vomiting and inability to tolerate oral intake this week. Hopefully will improve with IV fluids. We'll monitor output and renal indices. Code Status Full Discussed Condition With Patient, her family and ER providers Problem Qualifiers (1) Hypertension: Qualified Codes: I10 - Essential (primary) hypertension Aryan Galicia MD PhD Jan 17, 2017 20:37
[2017-01-17] MEDS: INSULIN ASPART SUPPLEMENTAL SCALE SQ SCH (21:00)
[2017-01-17] MEDS: LORazepam 2 MG/ML VIAL IV PUSH PRN (21:36)
[2017-01-18] VITALS: BP 114/70; PULSE 60; RESP 18; TEMP 98.6; O2SAT 97
[2017-01-18] MEDS: SODIUM CHLOR 0.9% 1000 ML INJ 1,000 ML IV SCH ×2 (04:00→14:00)
[2017-01-18 06:07] LABS: AUTOMATED NEUTROPHIL # 7.3 TH/MM3 (1.8-7.7); BASOPHIL # 0.1 TH/MM3 (0-0.2); BASOPHIL % 0.6 % (0.0-2.0); EOSINOPHIL # 0.2 TH/MM3 (0-0.4); EOSINOPHIL % 1.4 % (0.0-4.0); HEMATOCRIT 38.8 % (35.0-46.0); HEMO FLAGS DIFF FINAL; LYMPH % 31.1 % (9.0-44.0); LYMPHOCYTE # 3.8 TH/MM3 (1.0-4.8); MEAN CELL VOLUME 90.3 FL (80.0-100.0); MEAN CORPUSCULAR HEMOGLOBIN 30.9 PG (27.0-34.0); MEAN CORPUSCULAR HGB CONC 34.3 % (32.0-36.0); MONO % 7.3 % (0.0-8.0); NEUT % 59.6 % (16.0-70.0); PLATELET COUNT 256 TH/MM3 (150-450); RED CELL DISTRIBUTION WIDTH 11.8 % (11.6-17.2); WHITE BLOOD COUNT 12.3 TH/MM3 (4.0-11.0)
[2017-01-18 06:23] LABS: CHLORIDE 105 MEQ/L (98-107); POTASSIUM 3.3 MEQ/L (3.5-5.1); SODIUM (NA) 141 MEQ/L (136-145)
--- NOTE | 2017-01-18 06:26 | HHI.PR ---
Subjective Remarks She reports she is feeling much better morning. No nausea or vomiting overnight. Slept well overnight. Has noted increased urine output with IV fluid administration. Objective Vitals Vital Signs Date Time Temp Pulse Resp B/P (MAP) Pulse Ox O2 Delivery O2 Flow Rate FiO2 01/18/17 00:00 98.6 60 18 114/70 (85) 97 01/17/17 20:00 98.6 60 20 174/82 (112) 97 01/17/17 18:52 98.8 51 20 186/86 (119) 97 01/17/17 18:28 98.0 58 18 161/72 (101) 98 01/17/17 17:31 58 19 176/91 (119) 98 Room Air 01/17/17 16:19 52 18 183/91 (121) 98 Room Air 01/17/17 15:10 72 18 185/75 (111) 95 Room Air 01/17/17 14:11 96 Room Air 01/17/17 14:09 18 01/17/17 13:45 52 18 159/99 (119) 96 Room Air 01/17/17 12:54 98.2 56 16 200/104 (136) 99 GENERAL: Sleeping soundly but arouses to voice. Alert and oriented. No acute distress. SKIN: Warm and dry. Mild confluent erythematous malar rash which is similar to her baseline. HEAD: Normocephalic. EYES: No scleral icterus. No injection or drainage. NECK: Supple, trachea midline. No JVD or lymphadenopathy. CARDIOVASCULAR: Regular rate and rhythm without murmurs, gallops, or rubs. RESPIRATORY: Breath sounds equal bilaterally. No accessory muscle use. GASTROINTESTINAL: Abdomen soft, non-tender, nondistended. Bowel sounds normal. No guarding or rebound. MUSCULOSKELETAL: No cyanosis, or edema. Moves all extremities well. BACK: No CVA tenderness. Result Diagram: 01/18/1752601/18/17526 Imaging Last 72 hours Impressions Gall Bladder Ultrasound 01/17/17 1536 Signed Impressions: Service Date/Time: Tuesday, January 17, 2017 15:57 - CONCLUSION: Normal examination. Ibrahima Klein MD Chest X-Ray 01/17/17 1347 Signed Impressions: Service Date/Time: Tuesday, January 17, 2017 14:00 - CONCLUSION: No acute disease. Renny George MD FACR Abdomen/Pelvis CT 01/17/17 1310 Signed Impressions: Service Date/Time: Tuesday, January 17, 2017 14:57 - CONCLUSION: Mild colonic dilatation probably in ascending and transverse colon Otherwise unremarkable History of previous gastric surgery. Renny George MD FACR Urinary Catheter: No Vascular Central Line Catheter: No A/P Problem List: (1) Intractable nausea and vomiting ICD Codes: R11.2 - Nausea with vomiting, unspecified Status: Acute Plan: Much improved. We'll try clear fluids. Continue current therapy. Case has been discussed with Dr. Lombardi by ER providers per their report. He has recommended HIDA scan however her liver studies of thus far been okay. (2) Type 2 diabetes mellitus ICD Codes: E11.9 - Type 2 diabetes mellitus without complications Status: Chronic Plan: Has been well controlled since her bariatric surgery induced weight loss with an A1c around 5.9 in August of this year. We'll provide sliding scale insulin as needed. (3) Hypertension ICD Codes: I10 - Essential (primary) hypertension Status: Chronic Plan: BP has been a bit high as she has been in pain and has not been able to take her blood pressure medication at home. We'll continue to follow and use IV enalapril as needed. We'll resume oral antihypertensive. (4) Dehydration ICD Codes: E86.0 - Dehydration Status: Acute Plan: Likely associated with the protracted nausea and vomiting and inability to tolerate oral intake this week. Clinically improving with good urine output. Discharge Planning Hopefully discharge home later today depending on clinical progress and how well she tolerates diet. Problem Qualifiers (1) Hypertension: Qualified Codes: I10 - Essential (primary) hypertension Aryan Galicia MD PhD Jan 18, 2017 06:26
[2017-01-18] MEDS ORDERED: PILL SPLITTER OTHER PRN (06:30)
[2017-01-18 06:54] LABS: ALKALINE PHOSPHATASE 53 U/L (45-117); ALT (GPT) 19 U/L (10-53); ANION GAP 10 MEQ/L (5-15); AST (GOT) 12 U/L (15-37); BICARBONATE 25.9 MEQ/L (21.0-32.0); BLOOD UREA NITROGEN 20 MG/DL (7-18); GLOMERULAR FILTRATION RATE 56 ML/MIN (>89); TOTAL BILIRUBIN ADULT 1.1 MG/DL (0.2-1.0)
[2017-01-18 08:00] VITALS: BP 128/68; PULSE 56; RESP 14; TEMP 97.9; O2SAT 95
[2017-01-18] MEDS: INSULIN ASPART SUPPLEMENTAL SCALE SQ SCH ×4 (08:00→20:37)
[2017-01-18] MEDS: amLODIPine BESYLATE 5 MG TAB PO SCH ×2 (09:00→14:12)
--- NOTE | 2017-01-18 11:29 | RADRPT ---
EXAM DATE/TIME: 01/18/2017 08:52 [facility] COMPARISON: CT ABDOMEN & PELVIS W CONTRAST, January 17, 2017, 14:57. US ABDOMEN - GALLBLADDER, January 17 7, 15:57. INDICATIONS : Abdominal pain with nausea and vomiting. DOSE: 4.3 mCi Tc99m Mebrofenin IV MEDICAL HISTORY : Hypercholesterolemia. Hypertension. Hernia, hiatal. SURGICAL HISTORY : Tubal ligation. Tonsillectomy. ENCOUNTER: Initial ACUITY: 2 days PAIN SCALE: 6/10 LOCATION: Right upper quadrant TECHNIQUE: Following the intravenous administration of radiotracer, dynamic sequential images were performed wit h continuous acquisition. FINDINGS: HEPATIC KINETICS: There is prompt uptake of radiotracer in the liver. No focal defects are seen. There is normal rate of washout from the hepatic parenchyma. BILIARY CLEARANCE: Activity is first seen in the extrahepatic biliary system at 5 minutes. There is normal excretion in to the small bowel. GALLBLADDER: Activity is first seen in the gallbladder at 15 minutes. Common bile duct kinetics are normal and th ere is no evidence of biliary obstruction. BILIARY ENTRIC REFLUX: None observed. CONCLUSION: Unremarkable exam. Piotr Ziegler MD on January 18, 2017 at 11:22 Board Certified Radiologist. This report was verified electronically.
[2017-01-18 16:00] VITALS: BP 178/95; PULSE 71; RESP 14; TEMP 98.8; O2SAT 96
--- NOTE | 2017-01-18 16:23 | EKG ---
Date Performed: 01/17/2017 Time Performed: 13:55:02 PTAGE: 61 years EKG: SINUS BRADYCARDIA BORDERLINE LEFT AXIS DEVIATION BORDERLINE ECG Since PREVIOUS TRACING , no significant change noted PREVIOUS TRACIN11/20/2011 11.14 DOCTOR: Don Reeder Interpretating Date/Time 01/18/2017 16:21:50
--- NOTE | 2017-01-18 17:06 | MB ---
cc: STEVO TORRES M.D. DATE OF CONSULTATION: 01/18/2017 DATE OF : 1955 REASON FOR CONSULTATION: Abdominal pain. HISTORY OF PRESENT ILLNESS: Thank you for the consultation; pleasant 61-year-old lady who has multiple medical problems including diabetes and lupus. The patient has gastric sleeve in July, She has been complaining of nausea, vomiting, abdominal discomfort. The patient stated that she had four to five episodes of vomiting. She even for liquid she is not able to tolerate medication or food despite taking Phenergan and Zofran. The patient denied any hematemesis. No other issues except Medical given gastric pain. Apparently she had some gastric sleeve about 15 months ago and she had lost 80 pounds. She denied any other problems since then. REVIEW OF SYSTEMS All 12-point negative except HPI. PAST MEDICAL HISTORY Significant for PVCs Vitamin D deficiency Obesity. Sleep apnea. Hyperlipidemia. Hypertension. Dysphagia. Type 2 diabetes. Lumbar disk disease. Reflux symptom Anxiety. PAST SURGICAL HISTORY Significant for tonsillectomy. Gastric sleeve Hernia repair. Colonoscopy Endoscopy. MEDICATIONS Reviewed in the chart. ALLERGIES PENICILLIN. FAMILY HISTORY Significant for stroke depression psoriasis osteoporosis. Next lupus, rheumatoid arthritis, diabetes, hypertension. SOCIAL HISTORY Negative for tobacco or alcohol or drugs. PHYSICAL EXAMINATION IN GENERAL: Alert, oriented no acute distress. VITAL SIGNS: Vital signs: Stable. HEAD, EYES, EARS, NOSE, AND THROAT: Pupils are reactive to light. NECK: Supple. CHEST: Clear to auscultation and percussion. CARDAIC: Regular rate and rhythm. No murmur or gallop. ABDOMEN: Soft, mild tenderness in the epigastric area. Positive bowel sounds. No hepatosplenomegaly. Surgical scars from the laparoscopic sleeve. EXTREMITIES: No edema, clubbing or cyanosis. NEUROLOGIC: Neurologically intact with good range of motion. PSYCHIATRIC: Psychologically appropriate. LABORATORY DATA White count 12.3, hemoglobin 13.3, platelet 256, AST 12, ALT 19, total bilirubin 1.1, albumin 3.3. Gallbladder ultrasound was normal. Abdominal CT scan mild colonic dilatation unremarkable. ASSESSMENT/PLAN 61-year-old lady with abdominal pain, nausea, vomiting could be gastroenteritis or could be peptic ulcer disease from the post gastric sleeve. I recommend doing upper endoscopy, I discussed with the patient the procedure and complication. The patient agreeable to have the procedure done this will be done tomorrow. MD KYRIE Dover/wesley /3:45 PM /4:59 PM
[2017-01-18 20:00] VITALS: BP 187/91; PULSE 76; RESP 18; TEMP 99.5; O2SAT 98
[2017-01-18] MEDS ORDERED: POTASSIUM CHLORIDE 10 MEQ CONTROLLED RELEASE TAB PO ONE (20:30)
[2017-01-18] MEDS: LORazepam 2 MG/ML VIAL IV PUSH PRN (20:37)
--- NOTE | 2017-01-18 22:21 | MB ---
cc: JENNIE TRAN M.D. DATE OF CONSULTATION 01/18/17 1955 HISTORY This is a 61-year-old female who underwent a laparoscopic vertical sleeve gastrectomy in 2015. She presented to the emergency room on 01/17 with a three-day complaint of abdominal pain, nausea and vomiting. The patient states the pain is in her epigastrium as well as the right upper quadrant. She is not able to associate it with any particular type of meal. She states the pain persists presently. She had an ultrasound which was negative for stones. PET scan of the abdomen was negative. A HIDA scan showed normal uptake. The patient states she did have nausea on instillation of CCK and abdominal pain. She is not sure whether it was similar type of pain. The patient was seen by GI today and is to have an upper endoscopy in the a.m. PAST MEDICAL HISTORY 1. Type 2 diabetes, 2. Hypertension, 3. Hyperlipidemia, PAST SURGICAL HISTORY Significant for above as well as 1. Tonsillectomy, 2. Tubal ligation 3. Lysis of adhesions MEDICATIONS Can be obtained from medical records. ALLERGIES PENICILLIN SOCIAL HISTORY She does not smoke. Drinks alcohol occasionally. FAMILY HISTORY Noncontributory. REVIEW OF SYSTEMS Significant for above. LABORATORY DATA White blood cell count of 12.3. IMAGING STUDIES Radiologic images reviewed. ASSESSMENT AND PLAN A patient with abdominal pain of unclear etiology. We will await EGD as it is possible it could be ulcer. If EGD is negative. We will consider biliary dyskinesia as the diagnosis with possible removal of gallbladder. We will follow. MD LUIS Barboza/ /9:59 PM /10:08 PM
[2017-01-19] VITALS: BP 129/73; PULSE 73; RESP 18; TEMP 98.7
[2017-01-19] MEDS ORDERED: CHLORHEXIDINE GLUCONATE 2 % 1 PACK (2 CLOTHS) TOPICAL PRN (06:00)
[2017-01-19] MEDS ORDERED: POVIDONE IODINE 5% (ANTISEPSIS KIT) 4 APPLICATIONS EACH NARE PRN (06:00)
[2017-01-19] MEDS ORDERED: LEVOTHYROXINE SODIUM 50 MCG TAB PO SCH (06:00)
[2017-01-19] MEDS ORDERED: LACTATED RINGER'S 1000 ML IV PRN (06:00)
--- NOTE | 2017-01-19 07:31 | HHI.PR ---
Subjective Remarks And doing well until yesterday when she was given some contrast before the HIDA scan. She had several episodes of vomiting after that. However she tolerated clear liquids and Jell-O last night. She has been ambulating throughout the halls. Plan for EGD this morning per chart review and discussion with patient. Patient reports that she had similar reaction to contrast with a HIDA scan several years ago but had forgotten this. Objective Vitals Vital Signs Date Time Temp Pulse Resp B/P (MAP) Pulse Ox O2 Delivery O2 Flow Rate FiO2 01/19/17 00:00 98.7 73 18 129/73 (91) 01/18/17 20:00 99.5 76 18 187/91 (123) 98 01/18/17 16:00 98.8 71 14 178/95 (122) 96 01/18/17 08:00 97.9 56 14 128/68 (88) 95 GENERAL: Awake. Alert and oriented. No acute distress. SKIN: Warm and dry. Mild confluent erythematous malar rash which is similar to her baseline. HEAD: Normocephalic. EYES: No scleral icterus. No injection or drainage. NECK: Supple, trachea midline. No JVD or lymphadenopathy. CARDIOVASCULAR: Regular rate and rhythm without murmurs, gallops, or rubs. RESPIRATORY: Breath sounds equal bilaterally. No accessory muscle use. GASTROINTESTINAL: Abdomen soft, nondistended. Mild tenderness in the epigastrium. Bowel sounds normal. No guarding or rebound. MUSCULOSKELETAL: No cyanosis, or edema. Moves all extremities well. BACK: No CVA tenderness. Result Diagram: 01/18/17 0527 01/18/1727 Imaging Last 72 hours Impressions Gall Bladder Ultrasound 01/17/17 1536 Signed Impressions: Service Date/Time: Tuesday, January 17, 2017 15:57 - CONCLUSION: Normal examination. Ibrahima Klein MD Chest X-Ray 01/17/17 1347 Signed Impressions: Service Date/Time: Tuesday, January 17, 2017 14:00 - CONCLUSION: No acute disease. Renny George MD FACR Abdomen/Pelvis CT 01/17/17 1310 Signed Impressions: Service Date/Time: Tuesday, January 17, 2017 14:57 - CONCLUSION: Mild colonic dilatation probably in ascending and transverse colon Otherwise unremarkable History of previous gastric surgery. Renny George MD FACR Urinary Catheter: No Vascular Central Line Catheter: No A/P Problem List: (1) Intractable nausea and vomiting ICD Codes: R11.2 - Nausea with vomiting, unspecified Status: Acute Plan: HIDA scan and ultrasound look fine. Symptoms much improved. Plan EGD this morning and hopefully discharge home later today. (2) Type 2 diabetes mellitus ICD Codes: E11.9 - Type 2 diabetes mellitus without complications Status: Chronic Plan: Has been well controlled since her bariatric surgery induced weight loss with an A1c around 5.9 in August of this year. We'll provide sliding scale insulin as needed. (3) Hypertension ICD Codes: I10 - Essential (primary) hypertension Status: Chronic Plan: BP has been a bit high as she has been in pain and has not been able to take her blood pressure medication at home. We'll continue to follow and use IV enalapril as needed. We'll resume oral antihypertensive. (4) Dehydration ICD Codes: E86.0 - Dehydration Status: Acute Plan: Clinically improved. Good urine output. Renal indices improved. Discharge Planning Hopefully discharge home later today depending on EGD findings, clinical progress and how well she tolerates diet. It is noted that patient is ambulating often in the room and in the halls which should decrease venous stasis or thrombosis risk. Problem Qualifiers (1) Hypertension: Qualified Codes: I10 - Essential (primary) hypertension Aryan Galicia MD PhD Jan 19, 2017 07:31
[2017-01-19] MEDS: INSULIN ASPART SUPPLEMENTAL SCALE SQ SCH ×3 (07:54→17:00)
[2017-01-19 08:00] VITALS: BP 182/82; PULSE 58; RESP 18; TEMP 98.6; O2SAT 97
[2017-01-19] MEDS: SODIUM CHLOR 0.9% 1000 ML INJ 1,000 ML IV SCH ×3 (10:00→20:00)
[2017-01-19 12:00] VITALS: BP 166/80; PULSE 74; RESP 16; TEMP 98.2; O2SAT 97
--- NOTE | 2017-01-19 14:12 | HHI.PR ---
Addendum to Inpatient Note Addendum Reason: Additional Documentation Additional Information Re-evaluated pt. She is doing well awaiting EGD which will be done around 3 pm per d/w nurse. Pt has been ambulating in room and in perez. Feel overall well with no more vomiting. Aryan Galicia MD PhD Jan 19, 2017 14:12
[2017-01-19 15:11] VITALS: BP 182/82; PULSE 58; RESP 18; TEMP 98.6; O2SAT 97
[2017-01-19 16:00] VITALS: BP 136/85; PULSE 73; RESP 18; TEMP 98.7; O2SAT 98
--- NOTE | 2017-01-19 16:02 | GIPROC ---
[facility] [address] [place] [address], [id number] EGD PROCEDURE REPORT EXAM DATE: 01/19/2017 PATIENT NAME: Rita Mckinnon MR #: [id number] BIRTHDATE: 1955 ATTENDING: Leslye Hernandez MD ORDER #: [id number] QUILLER HAND: Jac Willson STATUS: inpatient INDICATIONS: The patient is a 61 yr old female here for an EGD due to epigastric abdominal pain and dyspepsia PROCEDURE PERFORMED: EGD w/ biopsy MEDICATIONS: None and Per Anesthesia. TOPICAL ANESTHETIC: CONSENT: The patient understands the risks and benefits of the procedure and understands that these risks include, but are not limited to: sedation, allergic reaction, infection, perforation and/or bleeding. Alternative means of evaluation and treatment include, among others: physical exam, x-rays, and/or surgical intervention. The patient elects to proceed with this endoscopic procedure. medical equipment was checked for proper function. Hand hygiene and appropriate measures for infection prevention was taken. After the risks, benefits and alternatives of the procedure were thoroughly explained, Informed consent was verified, confirmed and timeout was successfully executed by the treatment team. The patient was anesthetized with topical anesthesia and the Pentax EG-[id number] endoscope was introduced through the mouth and advanced to the second portion of the duodenum. Retroflexed views revealed no abnormalities The gastroscope was then slowly withdrawn and removed. ESOPHAGUS: There was LA Class A esophagitis noted. STOMACH: There was erythematous severe gastritis in the gastric antrum. A biopsy was performed using cold forceps. Sample sent for histology. Moderate portal hypertensive gastropathy was found in the gastric body. A biopsy was performed using cold forceps. Sample sent for histology. DUODENUM: The duodenal mucosa appeared normal in the bulb and second portion of the duodenum. ADVERSE EVENTS: There were no complications. IMPRESSIONS: 1. There was LA Class A esophagitis noted 2. There was erythematous gastritis in the gastric antrum; biopsy was performed 3. Portal hypertensive gastropathy was found in the gastric body 4. Normal duodenal mucosa in the bulb and second portion of the duodenum 5. Retroflexed views revealed no abnormalities RECOMMENDATIONS: 1. Await biopsy results. Biopsy results will not be ready for 7-10 days. If you don't hear from us in two weeks, call our office for biopsy results. 2. Anti-reflux regimen 3. Continue PPI 4. Avoid NSAIDS PATIENT CONDITION: stable DISPOSITION: Inpatient REPEAT EXAM: Return 4 weeks EGD pending biopsy results Leslye Hernandez MD eSigned: Leslye Hernandez MD 01/19/2017 4:02 PM cc: PATIENT NAME: PratibhaRita MR#: [id number]
[2017-01-19] MEDS ORDERED: PANT40TA3 PO (20:06)
--- NOTE | 2017-01-19 20:12 | HHI.DS ---
Discharge Summary Admission Date Jan 17, 2017 at 17:19 Discharge Date: Jan 19, 2017 Admitting Diagnosis Intractable abdominal pain with nausea and vomiting (1) Intractable nausea and vomiting Diagnosis: Principal ICD Codes: R11.2 - Nausea with vomiting, unspecified Status: Acute (2) Dehydration Diagnosis: Principal ICD Codes: E86.0 - Dehydration Status: Acute (3) Type 2 diabetes mellitus Diagnosis: Secondary ICD Codes: E11.9 - Type 2 diabetes mellitus without complications Status: Chronic (4) Hypertension Diagnosis: Secondary ICD Codes: I10 - Essential (primary) hypertension Status: Chronic Consultants Mehnaz Obando and David - GI Dr Lombardi - Gen Surgery Procedures EGD 01/19/17 revealed gastritis, portal gastropathy Brief History This 61-year-old female with history of lupus, diabetes, status post gastric sleeve in 2016 who is complaining of vomiting. She says she's been sick since Sunday and has been vomiting everything since then. She is unable to hold down liquids. She has not been able to retain her medication and has failed treatment with Phenergan and Zofran as outpatient. There has not been any diarrhea. She says she's had fever as high as 101.8. she is having some mild- to-moderate epigastric abdominal pain. She had a laparoscopic gastric sleeve surgery in July 2015. There are no complications at the time of the surgery she has had an 80 pound weight loss since then. She does have a history of diabetes but her diabetes medications have been tapered since the surgery. She is having pain in her back and somewhat diffuse myalgias. She has not had a bowel movement in several days but has not had any solid food intake. She does not recall having discomfort like this before. She says the pain is quite severe at times and crampy in nature. She has not had a sore throat or cough. No unusual food intake. No rales or undercooked food ingestion. No foreign travel. No others in the household have similar illness. Initial workup here noted for slight elevation of white blood cell count and creatinine elevated at 1.5 above her baseline which is around 0.9. She has been given Compazine, Dilaudid and IV fluids. The Compazine seems to have helped her nausea quite a bit. States that she feels much better tonight and is no longer having dry heaves. She has had good output put of urine since being on the IV fluids she reports. Ultrasound of gallbladder, CT of abdomen and pelvis and chest x-ray revealed no obvious acute findings. CBC/BMP: 01/18/17 0527 01/19/17 1500 Significant Findings Laboratory Tests Test 01/17/17 13:20 01/17/17 13:25 01/18/17 05:27 01/19/17 15:00 Urine Protein 100 mg/dL (NEG-TRACE) Urine Ketones 40 mg/dL (NEG) Urine Squamous Epithelial Cells > 8 /hpf (0-5) Urine Bacteria FEW /hpf (NONE) Urine Mucus FEW /lpf (OCC) White Blood Count 12.4 TH/MM3 (4.0-11.0) 12.3 TH/MM3 (4.0-11.0) Neutrophils (%) (Auto) 85.6 % (16.0-70.0) Neutrophils # (Auto) 10.6 TH/MM3 (1.8-7.7) Blood Urea Nitrogen 25 MG/DL (7-18) 20 MG/DL (7-18) Creatinine 1.50 MG/DL (0.50-1.00) Random Glucose 153 MG/DL (74-106) Total Protein 8.8 GM/DL (6.4-8.2) Estimat Glomerular Filtration Rate 35 ML/MIN (>89) 56 ML/MIN (>89) 63 ML/MIN (>89) Albumin 3.3 GM/DL (3.4-5.0) Aspartate Amino Transf (AST/SGOT) 12 U/L (15-37) Total Bilirubin 1.1 MG/DL (0.2-1.0) Potassium Level 3.3 MEQ/L (3.5-5.1) Imaging Last 72 hours Impressions Gall Bladder Ultrasound 01/17/17 1536 Signed Impressions: Service Date/Time: Tuesday, January 17, 2017 15:57 - CONCLUSION: Normal examination. Ibrahima Klein MD Chest X-Ray 01/17/17 1347 Signed Impressions: Service Date/Time: Tuesday, January 17, 2017 14:00 - CONCLUSION: No acute disease. Renny George MD FACR Abdomen/Pelvis CT 01/17/17 1310 Signed Impressions: Service Date/Time: Tuesday, January 17, 2017 14:57 - CONCLUSION: Mild colonic dilatation probably in ascending and transverse colon Otherwise unremarkable History of previous gastric surgery. Renny George MD FACR Hepatobiliary Scan Nuclear Medicine 01/17/17 0000 Signed Impressions: Service Date/Time: December 08:52 - CONCLUSION: Unremarkable exam. Piotr Ziegler MD Hospital Course Pt admitted for intractable n/v despite outpt meds. She was a bit dehydrated, but responded well to IV compazine and IVF. Was seen in consult by Gen surgery given her gastric sleeve bariatric hx and GI for EGD which was done 01/19/17. EGD revealed Class A esophagitis, gastritis, portal gastropathy. Pt felt well after EGD and was able to tolerate oral intake w/o n/v. She will be d/c home with instructions for bland diet and outpt f/u with GI/Gen surgery. Pt Condition on Discharge: Stable Discharge Disposition: Discharge Home Discharge Instructions DIET: Follow Instructions for: Heart Healthy Diet Additional Diet Instructions: bland, low fat diet and slowly advance as tolerated Activities you can perform: Regular-No Restrictions Follow up Referrals: Gastroenterology PCP Follow-up Surgical New Medications: Pantoprazole (Pantoprazole) 40 Mg Tab 40 MG PO DAILY for Reflux, #30 TAB 0 Refills Continued Medications: Amlodipine (Amlodipine) 10 Mg Tab 10 MG PO DAILY for Blood Pressure Management, #30 TAB 0 Refills Levothyroxine (Levothyroxine) 50 Mcg Tab 50 MCG PO DAILY for Thyroid, #30 TAB 0 Refills Metformin (Metformin) 500 Mg Tab 500 MG PO DAILY for Blood Sugar Management, #30 TAB 0 Refills With a meal Aryan Galicia MD PhD Jan 19, 2017 20:12
== END 2017-01-19 20:40 | disposition home or self-care (01) ==
LOC: PHED 12:50 → PHEDA 17:19 → PH3A 18:25
PROVIDERS: ADMIT Family Medicine; ATTEND Family Medicine
DX: R11.2 Nausea with vomiting, unspecified (principal); K21.0 Gastro-esophageal reflux disease with esophagitis; K29.70 Gastritis, unspecified, without bleeding; R00.1 Bradycardia, unspecified; E86.0 Dehydration; I10 Essential (primary) hypertension; R10.13 Epigastric pain; M54.9 Dorsalgia, unspecified; M79.1 Myalgia; R06.02 Shortness of breath; K59.00 Constipation, unspecified; R53.83 Other fatigue; R50.9 Fever, unspecified; R63.4 Abnormal weight loss; M25.50 Pain in unspecified joint; K31.84 Gastroparesis; E11.43 Type 2 diabetes mellitus with diabetic autonomic (poly)neuropathy; K31.89 Other diseases of stomach and duodenum; K76.6 Portal hypertension; K21.9 Gastro-esophageal reflux disease without esophagitis; E78.00 Pure hypercholesterolemia, unspecified; E03.9 Hypothyroidism, unspecified; G47.33 Obstructive sleep apnea (adult) (pediatric); K76.0 Fatty (change of) liver, not elsewhere classified; M51.36 Other intervertebral disc degeneration, lumbar region; F41.9 Anxiety disorder, unspecified; F32.9 Major depressive disorder, single episode, unspecified; E66.9 Obesity, unspecified; Z79.899 Other long term (current) drug therapy; Z79.84 Long term (current) use of oral hypoglycemic drugs; Z98.84 Bariatric surgery status
CPT/HCPCS: 00740; 43239; 71010; 74177; 76705; 78226; 80053; 81001; 82565; 82948; 83690; 85025; 87804; 88305; 88312; 93005; 96361; 96374; 96375; 96376; 99285; A9537; G0378; J0780; J1170; J2060; J2405; J7030; Q9963; Q9967

== ENCOUNTER 2017-08-13 12:59 | Emergency (ER) | payer OTHER ==
[~2017-08-13] VITALS: Ht 165.1 cm; Wt 83.0 kg
[~2017-08-13 12:59] MED LIST changes: +AMLO10TA2 PO; -CEPH-460 PO; -LISI-519 PO; +PANT40TA3 PO
[2017-08-13 13:02] VITALS: BP 208/96; PULSE 59; RESP 20; TEMP 98.3; O2SAT 99
[2017-08-13] MEDS ORDERED: SODIUM CHLOR 0.9% 1000 ML INJ 1,000 ML IV ONE (13:30)
[2017-08-13] MEDS ORDERED: METOCLOPRAMIDE HCL 10 MG/2 ML VIAL IV PUSH ONE (13:30)
--- NOTE | 2017-08-13 13:34 | PD ---
HPI Chief Complaint: GI Complaint Time Seen by Provider: 13:27 Travel History International Travel<30 days: No Contact w/Intl Traveler<30days: No Traveled to known affect area: No History of Present Illness HPI 61-year-old female patient with history of diabetes, hypertension, gastric sleeve, presents to the ER today for 3 days history of nausea, vomiting, diarrhea, paraumbilical abdominal pains which she currently measures an 8 out of 10. She does not know of any alleviating of exacerbating factors. She states she feels some chills but does not know whether she has fevers or not. She states that she had a similar episode last year but did not find anything unusual. She does not any sick contacts, travel, no recent antibiotic use. Modifying Factors: None Associated Signs & Symptoms: Nausea, vomiting, diarrhea, abdominal pain for 3 days Risk Factors: None PFSH Past Medical History Hx Anticoagulant Therapy: No Anxiety: Yes Heart Rhythm Problems: No Cancer: No Cardiac Catheterization: No Cardiovascular Problems: Yes (HTN, CHOL) High Cholesterol: Yes Congestive Heart Failure: No Diabetes: Yes Patient Takes Glucophage: No Diminished Hearing: No Endocrine: No Genitourinary: No Hepatitis: No Hiatal Hernia: Yes Hypertension: Yes Immune Disorder: No Musculoskeletal: No Neurologic: No Psychiatric: No Reproductive: Yes Respiratory: No Immunizations Current: Yes Myocardial Infarction: No Thyroid Disease: Yes Tetanus Vaccination: < 5 Years Influenza Vaccination: No ?: Not Menopausal: Yes Ovarian Cysts: Yes Tubal Ligation: Yes Past Surgical History AICD: No Cardiac Surgery: No Coronary Artery Bypass Graft: No Ear Surgery: No Endocrine Surgery: No Eye Surgery: No Genitourinary Surgery: No Gynecologic Surgery: Yes (1999) Joint Replacement: No Pacemaker: No Thoracic Surgery: No Tonsillectomy: Yes Other Surgery: Yes (gastric sleeve) Social History Alcohol Use: No 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 Awake and oriented 3. SKIN: Focused skin assessment warm/dry. HEAD: Atraumatic. Normocephalic. EYES: Pupils equal and round. No scleral icterus. No injection or drainage. ENT: No nasal bleeding or discharge. Mucous membranes pink and moist. NECK: Trachea midline. No JVD. CARDIOVASCULAR: Regular rate and rhythm. No murmur appreciated. RESPIRATORY: No accessory muscle use. Clear to auscultation. Breath sounds equal bilaterally. GASTROINTESTINAL: Abdomen soft, non-tender, nondistended. Hepatic and splenic margins not palpable. Benign. MUSCULOSKELETAL: No obvious deformities. No clubbing. No cyanosis. No edema. NEUROLOGICAL: Awake and alert. No obvious cranial nerve deficits. Motor grossly within normal limits. Normal speech. PSYCHIATRIC: Appropriate mood and affect; insight and judgment normal. Data Data Last Documented VS Vital Signs Date Time Temp Pulse Resp B/P (MAP) Pulse Ox O2 Delivery O2 Flow Rate FiO2 08/13/17 13:02 98.3 59 20 208/96 (133) 99 Orders Orders Electrocardiogram (08/13/17 13:27) Complete Blood Count With Diff (08/13/17 13:27) Comprehensive Metabolic Panel (08/13/17 13:27) Troponin I (08/13/17 13:27) Lipase (08/13/17 13:27) Urinalysis - C+S If Indicated (08/13/17 13:27) Iv Access Insert/Monitor (08/13/17 13:27) Sodium Chlor 0.9% 1000 Ml Inj (Ns 1000 M (08/13/17 13:30) Metoclopramide Inj (Reglan Inj) (08/13/17 13:30) Ct Abd/Pel W Iv Contrast(Rout) (08/13/17 14:02) Iodixanol 320 Inj (Rad Ct) (Visipaque 32 (08/13/17 14:56) Ed Discharge Order (08/13/17 15:30) Labs Laboratory Tests Test 08/13/17 13:35 08/13/17 14:00 White Blood Count 9.9 TH/MM3 Red Blood Count 4.98 MIL/MM3 Hemoglobin 15.7 GM/DL Hematocrit 46.3 % Mean Corpuscular Volume 93.1 FL Mean Corpuscular Hemoglobin 31.6 PG Mean Corpuscular Hemoglobin Concent 33.9 % Red Cell Distribution Width 11.6 % Platelet Count 326 TH/MM3 Mean Platelet Volume 7.6 FL Neutrophils (%) (Auto) 88.9 % Lymphocytes (%) (Auto) 9.7 % Monocytes (%) (Auto) 0.9 % Eosinophils (%) (Auto) 0.1 % Basophils (%) (Auto) 0.4 % Neutrophils # (Auto) 8.8 TH/MM3 Lymphocytes # (Auto) 1.0 TH/MM3 Monocytes # (Auto) 0.1 TH/MM3 Eosinophils # (Auto) 0.0 TH/MM3 Basophils # (Auto) 0.0 TH/MM3 CBC Comment DIFF FINAL Differential Comment Blood Urea Nitrogen 28 MG/DL Creatinine 1.50 MG/DL Random Glucose 149 MG/DL Total Protein 9.1 GM/DL Albumin 4.2 GM/DL Calcium Level 9.7 MG/DL Alkaline Phosphatase 69 U/L Aspartate Amino Transf (AST/SGOT) 20 U/L Alanine Aminotransferase (ALT/SGPT) 20 U/L Total Bilirubin 0.8 MG/DL Sodium Level 137 MEQ/L Potassium Level 3.7 MEQ/L Chloride Level 100 MEQ/L Carbon Dioxide Level 23.5 MEQ/L Anion Gap 14 MEQ/L Estimat Glomerular Filtration Rate 35 ML/MIN Troponin I LESS THAN 0.02 NG/ML Lipase 231 U/L Urine Collection Type VOIDED Urine Color YELLOW Urine Turbidity CLEAR Urine pH 6.0 Urine Specific Bailey 1.025 Urine Protein 100 mg/dL Urine Glucose (UA) NEG mg/dL Urine Ketones 15 mg/dL Urine Occult Blood TRACE Urine Nitrite NEG Urine Bilirubin NEG Urine Urobilinogen 0.2 MG/DL Urine Leukocyte Esterase NEG Urine RBC 0-3 /hpf Urine WBC 0-2 /hpf Urine Squamous Epithelial Cells 2-4 /hpf Urine Transitional Epithelial Cells 0-2 /hpf Urine Mucus RARE /lpf Microscopic Urinalysis Comment CULT NOT INDICATED MDM Medical Decision Making Medical Screen Exam Complete: Yes Emergency Medical Condition: Yes Medical Record Reviewed: Yes Interpretation(s) Laboratory Tests Test 08/13/17 13:35 08/13/17 14:00 Hemoglobin 15.7 GM/DL (11.6-15.3) Hematocrit 46.3 % (35.0-46.0) Neutrophils (%) (Auto) 88.9 % (16.0-70.0) Neutrophils # (Auto) 8.8 TH/MM3 (1.8-7.7) Blood Urea Nitrogen 28 MG/DL (7-18) Creatinine 1.50 MG/DL (0.50-1.00) Random Glucose 149 MG/DL (74-106) Total Protein 9.1 GM/DL (6.4-8.2) Estimat Glomerular Filtration Rate 35 ML/MIN (>89) Troponin I LESS THAN 0.02 NG/ML Urine Protein 100 mg/dL (NEG-TRACE) Urine Ketones 15 mg/dL (NEG) Last 24 hours Impressions Abdomen/Pelvis CT 08/13/17 1402 Signed Impressions: . CONCLUSION: 1. Very minimal inflammatory changes about the base of the cecum with a normal sized appendix. Inflammatory changes at the base of the cecum and not associat ed with the appendix 2. I do not see any other etiology for the pain.. Differential Diagnosis Gastritis versus gastroenteritis versus electrolyte abnormalities versus pancreatitis versus dehydration Narrative Course Lab work did not show significant leukocytosis. No significant electrolyte abnormalities were identified. Her urine did not show significant UTI. CAT scan shows some signs of minimal inflammation around the cecum but shows a normal-appearing appendix. On evaluation, patient has no tenderness in the right lower quadrant at all. At this point, I think symptoms are more likely secondary to gastroenteritis. She has received IV fluids and Reglan in the ER and on reevaluation at 3:30 PM, states he feels much better. My plan would be to release her with follow-up to primary care doctor. Return for worsening in symptoms as necessary. The plan has been discussed with her and she states understanding. Diagnosis Primary Impression: Gastroenteritis Med/Other Pt SpecificInfo: Prescription(s) given Scripts Ondansetron Odt (Zofran Odt) 4 Mg Tab 4 MG SL Q6HR Y for Nausea/Vomiting, #7 TAB 0 Refills Prov: Bunny Lyons MD 08/13/17 Disposition: 01 DISCHARGE HOME Condition: Stable Bunny Lyons MD Aug 13, 2017 13:34
[2017-08-13 13:40] LABS: AUTOMATED NEUTROPHIL # 8.8 TH/MM3 (1.8-7.7); BASOPHIL % 0.4 % (0.0-2.0); EOSINOPHIL % 0.1 % (0.0-4.0); HEMATOCRIT 46.3 % (35.0-46.0); HEMOGLOBIN 15.7 GM/DL (11.6-15.3); LYMPH % 9.7 % (9.0-44.0); MEAN CELL VOLUME 93.1 FL (80.0-100.0); MEAN CORPUSCULAR HEMOGLOBIN 31.6 PG (27.0-34.0); MEAN CORPUSCULAR HGB CONC 33.9 % (32.0-36.0); MEAN PLATELET VOLUME 7.6 FL (7.0-11.0); MONO % 0.9 % (0.0-8.0); MONOCYTE # 0.1 TH/MM3 (0-0.9); NEUT % 88.9 % (16.0-70.0); PLATELET COUNT 326 TH/MM3 (150-450); RED BLOOD COUNT 4.98 MIL/MM3 (4.00-5.30); RED CELL DISTRIBUTION WIDTH 11.6 % (11.6-17.2); WHITE BLOOD COUNT 9.9 TH/MM3 (4.0-11.0)
[2017-08-13 13:48] LABS: CHLORIDE 100 MEQ/L (98-107); SODIUM (NA) 137 MEQ/L (136-145)
[2017-08-13 13:51] LABS: ALBUMIN 4.2 GM/DL (3.4-5.0); BICARBONATE 23.5 MEQ/L (21.0-32.0); CALCIUM 9.7 MG/DL (8.5-10.1); GLUCOSE,RANDOM 149 MG/DL (74-106)
[2017-08-13 13:52] LABS: BLOOD UREA NITROGEN 28 MG/DL (7-18)
[2017-08-13 13:54] LABS: ALT (GPT) 20 U/L (10-53); AST (GOT) 20 U/L (15-37); GLOMERULAR FILTRATION RATE 35 ML/MIN (>89)
[2017-08-13 13:56] LABS: TOTAL BILIRUBIN ADULT 0.8 MG/DL (0.2-1.0); TOTAL PROTEIN 9.1 GM/DL (6.4-8.2)
[2017-08-13 13:57] LABS: ALKALINE PHOSPHATASE 69 U/L (45-117)
[2017-08-13 13:59] LABS: TROPONIN I LESS THAN 0.02 NG/ML (0.02-0.05)
[2017-08-13 14:06] LABS: BILIRUBIN, URINE NEG (NEG); BLOOD, URINE TRACE (NEG); GLUCOSE,URINE NEG (NEG); KETONE, URINE 15 mg/dL (NEG); NITRITE,URINE NEG (NEG); URINE COLOR YELLOW (YELLW/STRAW); URINE LEUKOCYTE ESTERASE NEG (NEG)
[2017-08-13 14:29] LABS: MUCUS URINE RARE /lpf (OCC); RBC, URINE 0-3 /hpf (0-3); TRANSITIONAL EPI CELLS, URINE 0-2 /hpf; WBC, URINE 0-2 /hpf (0-5)
[2017-08-13] MEDS ORDERED: IODIXANOL 320 MG/ML 10 ML VIAL (for Rad CT) IVCONTRAST ONE (14:56)
--- NOTE | 2017-08-13 15:14 | EKG ---
Date Performed: 08/13/2017 Time Performed: 13:37:05 PTAGE: 61 years EKG: Possible ectopic atrial rhythm SEPTAL MYOCARDIAL INFARCTION ABNORMAL ECG Compared to prior electrocardiogram, Possible ectopic atrial rhythm is present. PREVIOUS TRACING : 01/17/2017 13.55 DOCTOR: Adal Cintron Interpretating Date/Time 08/13/2017 15:12:03
--- NOTE | 2017-08-13 15:20 | RADRPT ---
EXAM DATE: 08/13/2017 2:58 PM EDT AGE/SEX: 61 years / Female INDICATIONS: Periumbilical pain with nausea and vomiting. CLINICAL DATA: This is the patient's initial encounter. Patient reports that signs and symptoms have been present for 4 - 6 days and indicates a pain score of 3/10. MEDICAL/SURGICAL HISTORY: Hypertension. Hypercholesterolemia. Hiatal hernia. Diabetes. Tuba l ligation. Tonsillectomy. Gastric sleeve. ORAL CONTRAST: No oral contrast ingested. RADIATION DOSE: 13.42 CTDI (mGy) COMPARISON: [facility], CT ABDOMEN & PELVIS W CONTRAST, 01/17/2017. . TECHNIQUE: Multiple contiguous axial images were obtained through the abdomen and pelvis following b olus infusion of 50 ml Visipaque 320 (iodixanol) nonionic water-soluble contrast as a single exam d ose. No oral contrast ingested. Using automated exposure control and adjustment of the mA and/or kV according to patient size, the radiation dose was kept as low as reasonably achievable to obtain opti mal diagnostic quality images. FINDINGS: Calcification is seen in the left lower lobe. Splenic calcifications are noted as well. Evidence for previous gastric surgery is noted. The liver and gallbladder unremarkable . Pancreas and adrenal glands appear normal There is symmetrical renal function without renal mass There is no ascites or adenopathy. The appendix has a large neck evident. There are very minimal inflammatory changes about the cecum . CONCLUSION: 1. Very minimal inflammatory changes about the base of the cecum with a normal sized appendix. Infla mmatory changes at the base of the cecum and not associated with the appendix 2. I do not see any other etiology for the pain.. Electronically signed by: Renny George MD 08/13/2017 3:19 PM EDT
[2017-08-13] MEDS ORDERED: ZOFR4TAB3 SL (15:33)
[2017-08-13 15:37] VITALS: BP 118/62
== END 2017-08-13 15:45 | disposition home or self-care (01) ==
LOC: PHED 12:59
DX: K52.9 Noninfective gastroenteritis and colitis, unspecified (principal); R94.31 Abnormal electrocardiogram [ECG] [EKG]; R19.7 Diarrhea, unspecified; R10.33 Periumbilical pain; F41.9 Anxiety disorder, unspecified; I10 Essential (primary) hypertension; E11.9 Type 2 diabetes mellitus without complications; Z88.0 Allergy status to penicillin
CPT/HCPCS: 74177; 80053; 81001; 83690; 84484; 85025; 93005; 96361; 96374; 99285; J2765; J7030; Q9967

== ENCOUNTER 2017-08-14 20:32 | Observation (INO) | payer OTHER ==
[~2017-08-14] VITALS: Ht 167.6 cm; Wt 80.0 kg
[~2017-08-14 20:32] MED LIST changes: -PANT40TA3 PO; +ZOFR4TAB3 SL
[2017-08-14 20:38] VITALS: PULSE 55; RESP 20
[2017-08-14 20:45] VITALS: BP 211/97; PULSE 60; RESP 22; O2SAT 100
[2017-08-14 20:50] VITALS: TEMP 99.4
[2017-08-14] MEDS ORDERED: MORPHINE SULFATE 4 MG/ML INJ IV PUSH ONE (21:00)
[2017-08-14] MEDS ORDERED: METOCLOPRAMIDE HCL 10 MG/2 ML VIAL IV PUSH ONE (21:00)
[2017-08-14] MEDS ORDERED: SODIUM CHLOR 0.9% 1000 ML INJ 1,000 ML IV ONE ×2 (21:00→22:00)
--- NOTE | 2017-08-14 21:00 | PD ---
HPI Chief Complaint: GI Complaint Time Seen by Provider: 20:53 Travel History International Travel<30 days: No Contact w/Intl Traveler<30days: No Traveled to known affect area: No History of Present Illness HPI The patient is a 61 year old female who presents to the [facility] emergency department with a history of upper abdominal pain that she reports began on Sunday and has been associated with nausea, vomiting, diarrhea. She last had diarrhea on Sunday, 2 days ago. She was experiencing diarrhea 3-4 times per day. She is unsure whether she had any blood in her stool as she reports that she does not look at her stool. She reports that she has had chills without any fever. She reports that she was seen in the [place] emergency department yesterday related to the symptoms. Her nausea, vomiting, and abdominal pain were improved, therefore she was discharged home. She reports that the symptoms recurred again at 4:30 PM today. She reports that the pain seems to also be present in her chest and is associated with shortness of breath, diaphoresis. She denies any prior history of cardiac disease. She last had a stress test in 2014 in preparation for a gastric sleeve. She reports that yesterday she was told in [place] that her heart rate was slow in the 40s. Her primary care physician is Dr. Galicia. Her shotgun shell assembly machine adjuster is Dr. Hernandez. She is unsure whether she has never been evaluated for gastroparesis. On review of systems otherwise, the patient denies having any cough or congestion, neck pain, urinary symptoms, or neurologic symptoms. The patient was brought in by ambulance services. The patient's blood sugar was 195. The patient does have a history of diabetes. The patient was also hypertensive with a blood pressure of 200 systolic. She reports that she has not taken her medications today due to the nausea. [facility] Past Medical History Narrative Medical The patient's past medical history is significant for hypertension, hyperlipidemia, diabetes mellitus, and acid reflux, anxiety disorder, lumbar degenerative disc disease, depression, fatty liver, hypothyroid disorder, obesity, obstructive sleep apnea, history of PVCs, history of vitamin D deficiency. Hx Anticoagulant Therapy: No Anxiety: Yes Heart Rhythm Problems: No Cancer: No Cardiac Catheterization: No Cardiovascular Problems: Yes High Cholesterol: Yes Congestive Heart Failure: No Diabetes: Yes Patient Takes Glucophage: No Diminished Hearing: No Endocrine: No Genitourinary: No Hepatitis: No Hiatal Hernia: Yes Hypertension: Yes Immune Disorder: No Musculoskeletal: No Neurologic: No Psychiatric: No Reproductive: Yes Respiratory: Yes (sleep apnea) Immunizations Current: Yes Myocardial Infarction: No Thyroid Disease: Yes ?: Not Menopausal: Yes Ovarian Cysts: Yes Tubal Ligation: Yes Past Surgical History Narrative Surgical The patient's past surgical history is significant for colonoscopy, endoscopy, gastric sleeve, ovarian cystectomy, tonsil and adenoidectomy, bilateral tubal ligation, hernia repair. 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) Substance Use: No Allergies-Medications (Allergen,Severity, Reaction): Coded Allergies: penicillin G (Unverified Allergy, Mild, HIVES, 08/13/17) Reported Meds & Prescriptions Reported Meds & Active Scripts Active Zofran Odt (Ondansetron Odt) 4 Mg Tab 4 Mg SL Q6HR PRN Reported Amlodipine (Amlodipine Besylate) 10 Mg Tab 10 Mg PO DAILY Metformin (Metformin HCl) 500 Mg Tab 500 Mg PO DAILY With a meal Levothyroxine (Levothyroxine Sodium) 50 Mcg Tab 50 Mcg PO DAILY Review of Systems Except as stated in HPI: all other systems reviewed are Neg General / Constitutional: No: Fever Eyes: No: Visual changes HENT: No: Headaches Cardiovascular: Positive: Chest Pain or Discomfort, Diaphoresis, Dyspnea on exertion Respiratory: No: Shortness of Breath Gastrointestinal: Positive: Nausea, Vomiting, Diarrhea, Abdominal Pain, Changes in Bowel Habits, Indigestion, No: Loss of Appetite Genitourinary: No: Dysuria Musculoskeletal: No: Pain Skin: No Rash Neurologic: Positive: Weakness (Generalized weakness), No: Focal Abnormalities , Change in Mentation, Slurred Speech, Sensory Disturbance Psychiatric: No: Depression Endocrine: No: Polydipsia Hematologic/Lymphatic: No: Easy Bruising Physical Exam Narrative General: The patient is a well-developed well-nourished female in no acute distress. Head and Neck exam: Head is normocephalic atraumatic. Eyes: EOMI, pupils are equal round and reactive to light. Nose: Midline septum with pink mucous membranes Mouth: Dentition unremarkable. Moist mucus membranes. Posterior oropharynx is not erythematous. No tonsillar hypertrophy. Uvula midline. Airway patent. Neck: No palpable lymphadenopathy. No nuchal rigidity. No thyromegaly. Cardiovascular: Sinus bradycardia in the 40s without murmurs, gallops, or rubs. No pulse deficit to the extremities on simultaneous auscultation and palpation of her radial artery. Lungs: Clear to auscultation bilaterally. No wheezes, rhonchi, or rales. Abdomen: Soft, with reported tenderness on palpation in bilateral upper quadrants of the abdomen in the midepigastric area, without any other tenderness on palpation of the other quadrants. Negative Obrien sign. No tenderness on palpation of McBurney's point. Normal bowel sounds are audible. No guarding, rebound, or rigidity. Extremities: No clubbing, cyanosis, or edema. 2+ pulses in all 4 extremities. No calf tenderness on palpation. Back: No costovertebral angle tenderness to palpation. Neurologic Exam: Grossly nonfocal. Skin Exam: No rash noted. Intact skin that is warm and dry. Data Data Last Documented VS Vital Signs Date Time Temp Pulse Resp B/P (MAP) Pulse Ox O2 Delivery O2 Flow Rate FiO2 08/14/17 20:50 99.4 08/14/17 20:45 60 22 100 Room Air Orders Orders Electrocardiogram (08/14/17 20:54) Complete Blood Count With Diff (08/14/17 20:54) Comprehensive Metabolic Panel (08/14/17 20:54) Creatine Kinase (Cpk) (08/14/17 20:54) Ckmb (Isoenzyme) Profile (08/14/17 20:54) Troponin I (08/14/17 20:54) B-Type Natriuretic Peptide (08/14/17 20:54) Prothrombin Time / Inr (Pt) (08/14/17 20:54) Act Partial Throm Time (Ptt) (08/14/17 20:54) Lipase (08/14/17 20:54) Magnesium (Mg) (08/14/17 20:54) Thyroid Stimulating Hormone (08/14/17 20:54) Chest, Single Ap (08/14/17 20:54) Iv Access Insert/Monitor (08/14/17 20:54) Ecg Monitoring (08/14/17 20:54) Oximetry (08/14/17 20:54) Sodium Chlor 0.9% 1000 Ml Inj (Ns 1000 M (08/14/17 21:00) Metoclopramide Inj (Reglan Inj) (08/14/17 21:00) Morphine Inj (Morphine Inj) (08/14/17 21:00) Potassium Chloride Eff (K-Lyte Cl Eff) (08/14/17 22:00) Sodium Chlor 0.9% 1000 Ml Inj (Ns 1000 M (08/14/17 22:00) Ns + Kcl 20 Meq Inj (Ns + Kcl 20 Meq Inj (08/14/17 22:00) Magnesium Sulfate 1 Gm Premix (Magnesium (08/14/17 22:00) Labs Laboratory Tests Test 08/14/17 21:13 White Blood Count 9.6 TH/MM3 Red Blood Count 4.54 MIL/MM3 Hemoglobin 14.1 GM/DL Hematocrit 40.6 % Mean Corpuscular Volume 89.5 FL Mean Corpuscular Hemoglobin 31.0 PG Mean Corpuscular Hemoglobin Concent 34.7 % Red Cell Distribution Width 12.5 % Platelet Count 287 TH/MM3 Mean Platelet Volume 8.1 FL Neutrophils (%) (Auto) 71.2 % Lymphocytes (%) (Auto) 21.7 % Monocytes (%) (Auto) 6.1 % Eosinophils (%) (Auto) 0.6 % Basophils (%) (Auto) 0.4 % Neutrophils # (Auto) 6.8 TH/MM3 Lymphocytes # (Auto) 2.1 TH/MM3 Monocytes # (Auto) 0.6 TH/MM3 Eosinophils # (Auto) 0.1 TH/MM3 Basophils # (Auto) 0.0 TH/MM3 CBC Comment DIFF FINAL Differential Comment Prothrombin Time 11.4 SEC Prothromb Time International Ratio 1.1 RATIO Activated Partial Thromboplast Time 21.0 SEC Blood Urea Nitrogen 33 MG/DL Creatinine 1.43 MG/DL Random Glucose 128 MG/DL Total Protein 7.8 GM/DL Albumin 3.8 GM/DL Calcium Level 8.9 MG/DL Magnesium Level 1.9 MG/DL Alkaline Phosphatase 60 U/L Aspartate Amino Transf (AST/SGOT) 9 U/L Alanine Aminotransferase (ALT/SGPT) 18 U/L Total Bilirubin 1.2 MG/DL Sodium Level 138 MEQ/L Potassium Level 3.1 MEQ/L Chloride Level 104 MEQ/L Carbon Dioxide Level 19.5 MEQ/L Anion Gap 15 MEQ/L Estimat Glomerular Filtration Rate 37 ML/MIN Total Creatine Kinase 66 U/L Troponin I LESS THAN 0.02 NG/ML B-Type Natriuretic Peptide 51 PG/ML Lipase 446 U/L Thyroid Stimulating Hormone 3rd Gen 2.540 uIU/ML [facility] Medical Decision Making Medical Screen Exam Complete: Yes Emergency Medical Condition: Yes Medical Record Reviewed: Yes Differential Diagnosis Acute coronary syndrome, versus gastroparesis, versus acid reflux, versus pancreatitis, versus gastroenteritis, versus colitis Narrative Course During the course of the patient's emergency department visit, the patient's history, examination, and differential diagnosis were reviewed with the patient. The patient was placed on a cardiac exercise physiologist with oximetry and frequent blood pressure monitoring. The patient had IV access obtained and blood work sent for analysis. The patient had a EKG done on arrival. The patient's EKG shows what appears to be a junctional rhythm heart rate of 44, QRS duration 113 ms with a moderate intraventricular conduction delay, QTC 468 ms consistent with a prolonged QT interval. The patient was initially provided normal saline 1 L IV fluid bolus, morphine for pain, Reglan 5 mg IV for nausea. The patient's laboratory studies were reviewed and remarkable for 08/14/17 21:13 Total Protein 7.8 #, Albumin 3.8, Calcium Level 8.9 #, Magnesium Level 1.9, Alkaline Phosphatase 60, Aspartate Amino Transf (AST/SGOT) 9 L, Alanine Aminotransferase (ALT/SGPT) 18, Total Bilirubin 1.2 H. The patient has worsening renal insufficiency suggestive of dehydration, potassium is low at 3.1 which could be contributing to the patient's prolonged QT interval. The patient was given p.o. potassium supplementation as well as another liter of normal saline IV fluids, followed by maintenance normal saline IV fluids with potassium. Magnesium was noted to be 1.9., Initial set of cardiac enzymes within normal limits, BNP within normal limits, lipase is elevated at 446, TSH within normal limits. PT PTT are unremarkable. Radiology studies were reviewed and remarkable for Last Impressions Chest X-Ray 08/14/172053 Signed Impressions: CONCLUSION: 1. 9 mm calcified granuloma at the left lung base. 2. Stable compared to prior dated 01/17/2017. 3. No acute abnormality. The patient will be admitted for further evaluation of pancreatitis, hypokalemia , CP R/O ACS, and prolonged QT. The patient's results were discussed with the patient, including the plan of care. I explained that further testing and/ or monitoring is indicated based on the patient's history, examination, and/ or laboratory findings. Therefore, I recommended admission for additional evaluation. The patient expressed understanding and was agreeable with this plan. The patient was admitted to the hospital in guarded condition and sent to a bed under the care of the [facility]. Physician Communication Physician Communication The patient's case including history, pertinent physical examination findings, and laboratory studies were discussed with Dr. Cornell. It was agreed that the patient would be admitted to the [facility] service. Diagnosis Primary Impression: Pancreatitis Qualified Codes: K85.90 - Acute pancreatitis without necrosis or infection, unspecified Additional Impressions: Hypokalemia Prolonged QT interval Chest pain, rule out acute myocardial infarction Admitting Information Admitting Physician Requests: Karen Rothman MD Aug 14, 2017 21:00
[2017-08-14 21:42] LABS: AUTOMATED NEUTROPHIL # 6.8 TH/MM3 (1.8-7.7); BASOPHIL % 0.4 % (0.0-2.0); EOSINOPHIL # 0.1 TH/MM3 (0-0.4); EOSINOPHIL % 0.6 % (0.0-4.0); HEMATOCRIT 40.6 % (35.0-46.0); HEMOGLOBIN 14.1 GM/DL (11.6-15.3); LYMPH % 21.7 % (9.0-44.0); LYMPHOCYTE # 2.1 TH/MM3 (1.0-4.8); MEAN CELL VOLUME 89.5 FL (80.0-100.0); MEAN CORPUSCULAR HGB CONC 34.7 % (32.0-36.0); MEAN PLATELET VOLUME 8.1 FL (7.0-11.0); MONO % 6.1 % (0.0-8.0); MONOCYTE # 0.6 TH/MM3 (0-0.9); NEUT % 71.2 % (16.0-70.0); PLATELET COUNT 287 TH/MM3 (150-450); RED BLOOD COUNT 4.54 MIL/MM3 (4.00-5.30); RED CELL DISTRIBUTION WIDTH 12.5 % (11.6-17.2); WHITE BLOOD COUNT 9.6 TH/MM3 (4.0-11.0)
[2017-08-14 21:51] LABS: ALBUMIN 3.8 GM/DL (3.4-5.0); AST (GOT) 9 U/L (15-37); BICARBONATE 19.5 MEQ/L (21.0-32.0); BLOOD UREA NITROGEN 33 MG/DL (7-18); CALCIUM 8.9 MG/DL (8.5-10.1); CHLORIDE 104 MEQ/L (98-107); CREATININE 1.43 MG/DL (0.50-1.00); GLOMERULAR FILTRATION RATE 37 ML/MIN (>89); GLUCOSE,RANDOM 128 MG/DL (74-106); MAGNESIUM 1.9 MG/DL (1.5-2.5); SODIUM (NA) 138 MEQ/L (136-145)
[2017-08-14 21:52] LABS: ALT (GPT) 18 U/L (10-53)
[2017-08-14] MEDS ORDERED: POTASSIUM CHLORIDE 25 MEQ EFFERVESCENT TAB PO ONE (22:00)
[2017-08-14] MEDS ORDERED: NS + KCL 20 MEQ INJ 1,000 ML IV SCH (22:00)
[2017-08-14] MEDS ORDERED: MAGNESIUM SULFATE 1 GM PREMIX 100 ML IV ONE (22:00)
--- NOTE | 2017-08-14 22:01 | RADRPT ---
EXAM DATE: 08/14/2017 9:31 PM EDT AGE/SEX: 61 years / Female INDICATIONS: Epigastric pain and vomiting. CLINICAL DATA: This is the patient's initial encounter. Patient reports that signs and symptoms have been present for 1 day and indicates a pain score of 5/10. MEDICAL/SURGICAL HISTORY: . Hypertension. Hypercholesterolemia. Hiatal hernia. Diabetes. . Tub al ligation. Tonsillectomy. Gastric sleeve. COMPARISON: [facility], CHEST SINGLE AP, 01/17/2017. . FINDINGS: The cardiac and mediastinal contours are within normal limits. The lungs are clear. The exam demonstr ates a 9 mm calcified granuloma in the left lower lobe. The visualized bony structures demonstrate de generative changes in the AC joints but are otherwise intact. CONCLUSION: 1. 9 mm calcified granuloma at the left lung base. 2. Stable compared to prior dated 01/17/2017. 3. No acute abnormality. Electronically signed by: Jan George MD 08/14/2017 10:00 PM EDT
[2017-08-14 22:02] LABS: INTERNATIONAL NORMALIZED RATIO 1.1 RATIO; PROTHROMBIN TIME - PATIENT 11.4 SEC (9.8-11.6)
[2017-08-14 22:08] LABS: ALKALINE PHOSPHATASE 60 U/L (45-117); TOTAL BILIRUBIN ADULT 1.2 MG/DL (0.2-1.0); TOTAL PROTEIN 7.8 GM/DL (6.4-8.2); TROPONIN I LESS THAN 0.02 NG/ML (0.02-0.05)
[2017-08-14 23:00] VITALS: BP 164/80; PULSE 62; RESP 18; O2SAT 100
[2017-08-14] MEDS ORDERED: NITROGLYCERIN 0.4 MG SL 25 TABS/BTL SL PRN (23:00)
[2017-08-14] MEDS ORDERED: SODIUM CHLORIDE 0.9% FLUSH 10 ML FLUSH IV FLUSH PRN (23:00)
[2017-08-14] MEDS ORDERED: MORPHINE SULFATE 4 MG/ML INJ IV PUSH PRN (23:00)
[2017-08-14] MEDS ORDERED: ONDANSETRON ODT 4 MG TAB SL PRN (23:00)
--- NOTE | 2017-08-14 23:11 | HHI.HP ---
HPI Service [facility] Primary Care Physician Aryan Galicia MD, PhD Admission Diagnosis Pancreatitis, hypokalemia, CP R/O ACS Chief Complaint: abdominal pain intermittant since 2 days ago with new atypical chest pain Travel History International Travel<30 Days: No Contact w/Intl Traveler <30 Da: No Traveled to Known Affected Are: No History of Present Illness The patient is a 61 year old female who presents to the [facility] emergency department with a history of upper abdominal pain that she reports began on Sunday and has been associated with nausea, vomiting, diarrhea. She last had diarrhea on Sunday, 2 days ago. She was experiencing diarrhea 3-4 times per day. She is unsure whether she had any blood in her stool as she reports that she does not look at her stool. She reports that she has had chills without any fever. She reports that she was seen in the [place] emergency department yesterday related to the symptoms. Her nausea, vomiting, and abdominal pain were improved, therefore she was discharged home. Patient had CT scan abdomen showed mild inflammation. She reports that the symptoms recurred again at 4:30 PM today. She reports that the pain seems to also be present in her chest and is associated with shortness of breath, diaphoresis, described as uncomfortable heaviness. She denies any prior history of cardiac disease. She last had a stress test in 2014 in preparation for a gastric sleeve. She reports that yesterday she was told in [place] that her heart rate was slow in the 40s. Her primary care physician is Dr. Galicia. Her broke worker is Dr. Hernandez. She is unsure whether she has never been evaluated for gastroparesis. On review of systems otherwise, the patient denies having any cough or congestion, neck pain, urinary symptoms, or neurologic symptoms. The patient was brought in by ambulance services. The patient's blood sugar was 195. The patient does have a history of diabetes. The patient was also hypertensive with a blood pressure of 200 systolic. She reports that she has not taken her medications today due to the nausea . Will admit as labs consistent with pancreatitis and will rule out any cardiac process. Review of Systems Constitutional: COMPLAINS OF: Diaphoretic episodes Respiratory: COMPLAINS OF: Shortness of breath Cardiovascular: COMPLAINS OF: Chest pain Gastrointestinal: COMPLAINS OF: Abdominal pain, Nausea, Vomiting Past Family Social History Past Medical History diabetes,hypertension hyperlipids,GERD hypothyroid anxiety Past Surgical History gastric sleeve 2014 with hx of abdominal pain with admits inpast,tonsil,ovarian surgery hernia Reported Medications Zofran Odt (Ondansetron Odt) 4 Mg Tab 4 Mg SL Q6HR PRN Reported Amlodipine (Amlodipine Besylate) 10 Mg Tab 10 Mg PO DAILY Metformin (Metformin HCl) 500 Mg Tab 500 Mg PO DAILY With a meal Levothyroxine (Levothyroxine Sodium) 50 Mcg Tab 50 Mcg PO DAILY Allergies: Coded Allergies: penicillin G (Unverified Allergy, Mild, HIVES, 08/13/17) Social History NS,ND Physical Exam Vital Signs Vital Signs Date Time Temp Pulse Resp B/P (MAP) Pulse Ox O2 Delivery O2 Flow Rate FiO2 08/14/17 20:50 99.4 08/14/17 20:45 60 22 211/97 (135) 100 Room Air 08/14/17 20:45 22 08/14/17 20:38 55 20 Physical Exam GENERAL: This is a well-nourished, well-developed patient, in no apparent distress. SKIN: No rashes, ecchymoses or lesions. Cool and dry. HEAD: Atraumatic. Normocephalic. No temporal or scalp tenderness. EYES: Pupils equal round and reactive. Extraocular motions intact. No scleral icterus. No injection or drainage. ENT: Nose without bleeding, purulent drainage or septal hematoma. Throat without erythema, tonsillar hypertrophy or exudate. Uvula midline. Airway patent. NECK: Trachea midline. No JVD or lymphadenopathy. Supple, nontender, no meningeal signs. CARDIOVASCULAR: Regular rate and rhythm without murmurs, gallops, or rubs. RESPIRATORY: Clear to auscultation. Breath sounds equal bilaterally. No wheezes , rales, or rhonchi. GASTROINTESTINAL: Abdomen soft, -tender, nondistended. No hepato-splenomegaly, or palpable masses. No guarding.no rebound pain more epigastric MUSCULOSKELETAL: Extremities without clubbing, cyanosis, or edema. No joint tenderness, effusion, or edema noted. No calf tenderness. Negative Homans sign bilaterally. NEUROLOGICAL: Awake and alert. Cranial nerves II through XII intact. Motor and sensory grossly within normal limits. Five out of 5 muscle strength in all muscle groups. Normal speech. Laboratory Laboratory Tests Test 08/14/17 21:13 White Blood Count 9.6 Red Blood Count 4.54 Hemoglobin 14.1 Hematocrit 40.6 Mean Corpuscular Volume 89.5 Mean Corpuscular Hemoglobin 31.0 Mean Corpuscular Hemoglobin Concent 34.7 Red Cell Distribution Width 12.5 Platelet Count 287 Mean Platelet Volume 8.1 Neutrophils (%) (Auto) 71.2 Lymphocytes (%) (Auto) 21.7 Monocytes (%) (Auto) 6.1 Eosinophils (%) (Auto) 0.6 Basophils (%) (Auto) 0.4 Neutrophils # (Auto) 6.8 Lymphocytes # (Auto) 2.1 Monocytes # (Auto) 0.6 Eosinophils # (Auto) 0.1 Basophils # (Auto) 0.0 CBC Comment DIFF FINAL Differential Comment Prothrombin Time 11.4 Prothromb Time International Ratio 1.1 Activated Partial Thromboplast Time 21.0 Blood Urea Nitrogen 33 Creatinine 1.43 Random Glucose 128 Total Protein 7.8 Albumin 3.8 Calcium Level 8.9 Magnesium Level 1.9 Alkaline Phosphatase 60 Aspartate Amino Transf (AST/SGOT) 9 Alanine Aminotransferase (ALT/SGPT) 18 Total Bilirubin 1.2 Sodium Level 138 Potassium Level 3.1 Chloride Level 104 Carbon Dioxide Level 19.5 Anion Gap 15 Estimat Glomerular Filtration Rate 37 Total Creatine Kinase 66 Troponin I LESS THAN 0.02 B-Type Natriuretic Peptide 51 Lipase 446 Thyroid Stimulating Hormone 3rd Gen 2.540 Result Diagram: 08/14/17211208/14/172112 Imaging Last 24 hours Impressions Chest X-Ray 08/14/172053 Signed Impressions: CONCLUSION: 1. 9 mm calcified granuloma at the left lung base. 2. Stable compared to prior dated 01/17/2017. 3. No acute abnormality. Course ekg showed bradycardia rate 40 with prolonged QT ,rhythm improved to 60 Caprini VTE Risk Assessment Caprini VTE Risk Assessment: Mod/High Risk (score >= 2) Caprini Risk Assessment Model Point Value = 1 Point Value = 2 Point Value = 3 Point Value = 5 Age 41-60 Minor surgery BMI > 25 kg/m2 Swollen legs Varicose veins or History of unexplained or recurrent spontaneous Oral contraceptives or hormone replacement Sepsis (< 1 month) Serious lung disease, including pneumonia (< 1 month) Abnormal pulmonary function Acute myocardial infarction Congestive heart failure (< 1 month) History of inflammatory bowel disease Medical patient at bed rest Age 61-74 Arthroscopic surgery Major open surgery (> 45 min) Laparoscopic surgery (> 45 min) Malignancy Confined to bed (> 72 hours) Immobilizing plaster cast Central venous access Age >= 75 History of VTE Family history of VTE Factor V Leiden Prothrombin [id number] Lupus anticoagulant Anticardiolipin antibodies Elevated serum homocysteine Heparin-induced thrombocytopenia Other congenital or acquired thrombophilia Stroke (< 1 month) Elective arthroplasty Hip, pelvis, or leg fracture Acute spinal cord injury (< 1 month) Prophylaxis Regimen Total Risk Factor Score Risk Level Prophylaxis Regimen 0-1 Low Early ambulation 2 Moderate Order ONE of the following: *Sequential Compression Device (SCD) *Heparin 5000 units SQ BID 3-4 Higher Order ONE of the following medications: *Heparin 5000 units SQ TID *Enoxaparin/Lovenox 40 mg SQ daily (WT < 150 kg, CrCl > 30 mL/min) *Enoxaparin/Lovenox 30 mg SQ daily (WT < 150 kg, CrCl > 10-29 mL/min) *Enoxaparin/Lovenox 30 mg SQ BID (WT < 150 kg, CrCl > 30 mL/min) AND/OR *Sequential Compression Device (SCD) 5 or more Highest Order ONE of the following medications: *Heparin 5000 units SQ TID (Preferred with Epidurals) *Enoxaparin/Lovenox 40 mg SQ daily (WT < 150 kg, CrCl > 30 mL/min) *Enoxaparin/Lovenox 30 mg SQ daily (WT < 150 kg, CrCl > 10-29 mL/min) *Enoxaparin/Lovenox 30 mg SQ BID (WT < 150 kg, CrCl > 30 mL/min) AND *Sequential Compression Device (SCD) Assessment and Plan Problem List: (1) Chest pain, rule out acute myocardial infarction ICD Codes: R07.9 - Chest pain, unspecified Status: Acute Plan: will admit serial enzymes and ekg consult cardiology does have prolonged QT with initial readings 40 heart rate (2) Pancreatitis ICD Codes: K85.90 - Acute pancreatitis without necrosis or infection, unspecified Status: Acute Plan: based on lab test CT abdomen was unremarkable will ask for GI evaluation morphine for pain (3) Prolonged QT interval ICD Codes: R94.31 - Abnormal electrocardiogram [ECG] [EKG] Status: Acute Plan: will consult cardiology did have low potassium will give potassium and magnesium (4) Hypokalemia ICD Codes: E87.6 - Hypokalemia Status: Acute Plan: as above follow up labs (5) Type 2 diabetes mellitus ICD Codes: E11.9 - Type 2 diabetes mellitus without complications Status: Chronic Plan: sliding scale (6) Intractable nausea and vomiting ICD Codes: R11.2 - Nausea with vomiting, unspecified Status: Acute Plan: zofrna for nausea and vomit (7) Hypertension ICD Codes: I10 - Essential (primary) hypertension Status: Chronic Plan: continue home med prn vasotec Assessment and Plan further plan as case develops Code Status full Discussed Condition With patient and daughter Problem Qualifiers (1) Pancreatitis: Qualified Codes: K85.90 - Acute pancreatitis without necrosis or infection, unspecified Tenzin Cornell MD Aug 14, 2017 23:11
[2017-08-14] MEDS ORDERED: ENALAPRILAT 1.25 MG/ML VIAL IV PUSH PRN (23:15)
[2017-08-14] MEDS ORDERED: ACETAMINOPHEN 325 MG TAB PO PRN (23:30)
[2017-08-15] VITALS (10 sets, daily range): BP systolic 105–175; BP diastolic 55–82; PULSE 47–84; RESP 12–17; TEMP 97.3–99; O2SAT 95–98
[2017-08-15] MEDS: PANTOPRAZOLE SODIUM 40 MG VIAL IV PUSH SCH ×2 (00:23→22:29)
[2017-08-15] MEDS: NITROGLYCERIN 2% OINT 1 GM PACKET TOP SCH ×4 (00:23→18:00)
[2017-08-15] MEDS: ENOXAPARIN SODIUM 40 MG/0.4 ML SYRINGE SQ SCH ×2 (00:24→22:29)
[2017-08-15] MEDS: 1/2 NS + KCL 20 MEQ INJ 1,000 ML IV SCH ×2 (00:37→19:23)
[2017-08-15 03:44] LABS: BASOPHIL % 0.4 % (0.0-2.0); EOSINOPHIL % 0.4 % (0.0-4.0); HEMATOCRIT 37.3 % (35.0-46.0); HEMOGLOBIN 12.8 GM/DL (11.6-15.3); LYMPH % 27.4 % (9.0-44.0); MEAN CORPUSCULAR HEMOGLOBIN 31.2 PG (27.0-34.0); MEAN CORPUSCULAR HGB CONC 34.3 % (32.0-36.0); MEAN PLATELET VOLUME 7.7 FL (7.0-11.0); MONO % 7.1 % (0.0-8.0); MONOCYTE # 0.8 TH/MM3 (0-0.9); NEUT % 64.7 % (16.0-70.0); PLATELET COUNT 284 TH/MM3 (150-450); RED CELL DISTRIBUTION WIDTH 12.7 % (11.6-17.2); WHITE BLOOD COUNT 10.9 TH/MM3 (4.0-11.0)
[2017-08-15 04:11] LABS: ALBUMIN 3.4 GM/DL (3.4-5.0); ALKALINE PHOSPHATASE 51 U/L (45-117); ALT (GPT) 13 U/L (10-53); AST (GOT) 11 U/L (15-37); BICARBONATE 25.8 MEQ/L (21.0-32.0); BLOOD UREA NITROGEN 27 MG/DL (7-18); CALCIUM 8.2 MG/DL (8.5-10.1); CHLORIDE 108 MEQ/L (98-107); CREATININE 1.28 MG/DL (0.50-1.00); GLOMERULAR FILTRATION RATE 42 ML/MIN (>89); GLUCOSE,RANDOM 101 MG/DL (74-106); SODIUM (NA) 142 MEQ/L (136-145); TOTAL BILIRUBIN ADULT 0.8 MG/DL (0.2-1.0); TROPONIN I LESS THAN 0.02 NG/ML (0.02-0.05)
[2017-08-15] MEDS: LEVOTHYROXINE SODIUM 50 MCG TAB PO SCH (07:00)
--- NOTE | 2017-08-15 07:43 | PD.CONS ---
HPI Consult Requested By Primary Care Physician Aryan Galicia MD, PhD History of Present Illness 61-year-old female with a past medical history of DM, HTN, hypothyroidism who presented for abdominal pain. Patient states that since last Sunday she has been having nausea, vomiting, epigastric abdominal pain, low-grade fevers. Initially presented to the ED 08/13, had CT abdomen done which showed mild inflammation of the cecum. She was given medication and her symptoms improved some. Her symptoms worsened and she returned on 08/14 and was admitted with lipase 446. Epigastric abdominal pain has been essentially constant since last Sunday and is reproducible to palpation. She denies any prior history of heart disease. Her EKG does show sinus bradycardia, U waves, PJCs; bradycardia and U waves are similar to previous EKG 12/2016; no ischemic changes noted. The patient was noted to be significantly dehydrated with low potassium, elevated creatinine, slight anion gap upon admission. Currently her symptoms seem to be improving. No specific chest pain. Review of Systems Negative except as stated in HPI Past Family Social History Allergies: Coded Allergies: penicillin G (Unverified Allergy, Mild, HIVES, 08/13/17) Past Medical History Diabetes mellitus Hypertension Hypothyroid Past Surgical History gastric sleeve 2014 with hx of abdominal pain with admits inpast,tonsil,ovarian surgery hernia Reported Medications Reported Meds & Active Scripts Active Zofran Odt (Ondansetron Odt) 4 Mg Tab 4 Mg SL Q6HR PRN Reported Amlodipine (Amlodipine Besylate) 10 Mg Tab 10 Mg PO DAILY Metformin (Metformin HCl) 500 Mg Tab 500 Mg PO DAILY With a meal Levothyroxine (Levothyroxine Sodium) 50 Mcg Tab 50 Mcg PO DAILY Active Ordered Medications Current Medications Medications (Trade) Dose Ordered Sig/Christy Route Start Time Stop Time Status Last Admin (Norvasc) 10 mg DAILY PO 08/15/17 09:00 (Synthroid) 50 mcg DAILY@0700 PO 08/15/17 07:00 08/15/17 07:00 (Zofran Odt) 4 mg Q6HR PRN SL 08/14/17 23:00 (NovoLOG SUPPLEMENTAL SCALE) 1 ACHS SLIDING SCALE SQ 08/15/17 08:00 (NS Flush) 2 ml BID IV FLUSH 08/15/17 09:00 (NS Flush) 2 ml UNSCH PRN IV FLUSH 08/14/17 23:00 (Nitroglycerin 2% Oint) 1 inch Q6HR TOP 08/15/17 00:00 08/15/17 06:00 (Nitrostat Sl) 0.4 mg Q5M PRN SL 08/14/17 23:00 (Morphine Inj) 2 mg Q3HR PRN IV PUSH 08/14/17 23:00 (Lovenox Inj) 40 mg Q24H SQ 08/14/17 23:00 08/15/17 00:24 (Protonix Inj) 40 mg Q24H IV PUSH 08/14/17 23:00 08/15/17 00:23 (Vasotec Inj) 1.25 mg Q8H PRN IV PUSH 08/14/17 23:15 Potassium Chloride/Sodium Chloride 1,000 ml @ 70 mls/hr [id number] IV 08/14/17 23:30 08/15/17 00:37 (Tylenol) 325 mg Q4H PRN PO 08/14/17 23:30 Social History Denies any alcohol, tobacco, recreational drug use Physical Exam Vital Signs Vital Signs Date Time Temp Pulse Resp B/P (MAP) Pulse Ox O2 Delivery O2 Flow Rate FiO2 08/15/17 04:04 98.4 56 16 114/65 (81) 98 08/15/17 00:06 99.0 57 16 175/82 (113) 98 08/14/17 23:00 62 18 164/80 (108) 100 Room Air 08/14/17 20:50 99.4 08/14/17 20:45 60 22 211/97 (135) 100 Room Air 08/14/17 20:45 22 08/14/17 20:38 55 20 Physical Exam GENERAL: Well-developed well-nourished. In no acute distress. NECK: No carotid bruits. No JVD. CARDIOVASCULAR: Regular rate and rhythm. No murmur appreciated. RESPIRATORY: No accessory muscle use. Clear to auscultation. Breath sounds equal bilaterally. ABDOMEN: Epigastric tenderness to palpation. MUSCULOSKELETAL: No clubbing or cyanosis. No edema. NEUROLOGICAL: Awake and alert. Normal speech. Laboratory Laboratory Tests Test 08/14/17 21:13 08/15/17 03:26 White Blood Count 9.6 10.9 Red Blood Count 4.54 4.10 Hemoglobin 14.1 12.8 Hematocrit 40.6 37.3 Mean Corpuscular Volume 89.5 91.0 Mean Corpuscular Hemoglobin 31.0 31.2 Mean Corpuscular Hemoglobin Concent 34.7 34.3 Red Cell Distribution Width 12.5 12.7 Platelet Count 287 284 Mean Platelet Volume 8.1 7.7 Neutrophils (%) (Auto) 71.2 64.7 Lymphocytes (%) (Auto) 21.7 27.4 Monocytes (%) (Auto) 6.1 7.1 Eosinophils (%) (Auto) 0.6 0.4 Basophils (%) (Auto) 0.4 0.4 Neutrophils # (Auto) 6.8 7.0 Lymphocytes # (Auto) 2.1 3.0 Monocytes # (Auto) 0.6 0.8 Eosinophils # (Auto) 0.1 0.0 Basophils # (Auto) 0.0 0.0 CBC Comment DIFF FINAL DIFF FINAL Differential Comment Prothrombin Time 11.4 Prothromb Time International Ratio 1.1 Activated Partial Thromboplast Time 21.0 Blood Urea Nitrogen 33 27 Creatinine 1.43 1.28 Random Glucose 128 101 Total Protein 7.8 7.0 Albumin 3.8 3.4 Calcium Level 8.9 8.2 Magnesium Level 1.9 Alkaline Phosphatase 60 51 Aspartate Amino Transf (AST/SGOT) 9 11 Alanine Aminotransferase (ALT/SGPT) 18 13 Total Bilirubin 1.2 0.8 Sodium Level 138 142 Potassium Level 3.1 4.2 Chloride Level 104 108 Carbon Dioxide Level 19.5 25.8 Anion Gap 15 8 Estimat Glomerular Filtration Rate 37 42 Total Creatine Kinase 66 Troponin I LESS THAN 0.02 LESS THAN 0.02 B-Type Natriuretic Peptide 51 Lipase 446 223 Thyroid Stimulating Hormone 3rd Gen 2.540 Result Diagram: 08/15/17 0326 08/15/17 0326 Imaging Last Impressions Chest X-Ray 08/14/172053 Signed Impressions: CONCLUSION: 1. 9 mm calcified granuloma at the left lung base. 2. Stable compared to prior dated 01/17/2017. 3. No acute abnormality. Assessment and Plan Assessment and Plan 61-year-old female with a past medical history of DM, HTN, hypothyroidism who presented for abdominal pain. Patient states that since last Sunday she has been having nausea, vomiting, epigastric abdominal pain, low-grade fevers. We will consulted for abnormal EKG. Gastroenteritis/dehydration: Management per primary team. Symptoms seem to be improving. Continue supportive care. Abnormal EKG: Pain is fairly typical for GI and non-angina. EKG with no ischemic changes and troponins 0.02. Premature junctional contractions are the only new finding on EKG, likely due to increased vagal tone from dehydration/ electrolyte changes from above. Nothing further to add from a cardiology standpoint and we will sign off. Please feel free to call with any questions. Discussed Condition With Patient seen and examined with Juan Miguel Stockton Aug 15, 2017 07:43
[2017-08-15] MEDS: INSULIN ASPART SUPPLEMENTAL SCALE SQ SCH ×4 (08:00→21:00)
--- NOTE | 2017-08-15 09:24 | HHI.PR ---
Subjective Remarks Pt feeling much better today She has only been eating ice chips She is still having soreness in the upper abdomen Objective Vitals Vital Signs Date Time Temp Pulse Resp B/P (MAP) Pulse Ox O2 Delivery O2 Flow Rate FiO2 08/15/17 07:49 97.3 47 12 129/68 (88) 98 08/15/17 04:04 98.4 56 16 114/65 (81) 98 08/15/17 00:06 99.0 57 16 175/82 (113) 98 08/14/17 23:00 62 18 164/80 (108) 100 Room Air 08/14/17 20:50 99.4 08/14/17 20:45 60 22 211/97 (135) 100 Room Air 08/14/17 20:45 22 08/14/17 20:38 55 20 Result Diagram: 08/15/17 0326 08/15/17 0326 Other Results Laboratory Tests Test 08/14/17 21:13 08/15/17 03:26 White Blood Count 9.6 TH/MM3 10.9 TH/MM3 Red Blood Count 4.54 MIL/MM3 4.10 MIL/MM3 Hemoglobin 14.1 GM/DL 12.8 GM/DL Hematocrit 40.6 % 37.3 % Mean Corpuscular Volume 89.5 FL 91.0 FL Mean Corpuscular Hemoglobin 31.0 PG 31.2 PG Mean Corpuscular Hemoglobin Concent 34.7 % 34.3 % Red Cell Distribution Width 12.5 % 12.7 % Platelet Count 287 TH/MM3 284 TH/MM3 Mean Platelet Volume 8.1 FL 7.7 FL Neutrophils (%) (Auto) 71.2 % 64.7 % Lymphocytes (%) (Auto) 21.7 % 27.4 % Monocytes (%) (Auto) 6.1 % 7.1 % Eosinophils (%) (Auto) 0.6 % 0.4 % Basophils (%) (Auto) 0.4 % 0.4 % Neutrophils # (Auto) 6.8 TH/MM3 7.0 TH/MM3 Lymphocytes # (Auto) 2.1 TH/MM3 3.0 TH/MM3 Monocytes # (Auto) 0.6 TH/MM3 0.8 TH/MM3 Eosinophils # (Auto) 0.1 TH/MM3 0.0 TH/MM3 Basophils # (Auto) 0.0 TH/MM3 0.0 TH/MM3 CBC Comment DIFF FINAL DIFF FINAL Differential Comment Prothrombin Time 11.4 SEC Prothromb Time International Ratio 1.1 RATIO Activated Partial Thromboplast Time 21.0 SEC Blood Urea Nitrogen 33 MG/DL 27 MG/DL Creatinine 1.43 MG/DL 1.28 MG/DL Random Glucose 128 MG/DL 101 MG/DL Total Protein 7.8 GM/DL 7.0 GM/DL Albumin 3.8 GM/DL 3.4 GM/DL Calcium Level 8.9 MG/DL 8.2 MG/DL Magnesium Level 1.9 MG/DL Alkaline Phosphatase 60 U/L 51 U/L Aspartate Amino Transf (AST/SGOT) 9 U/L 11 U/L Alanine Aminotransferase (ALT/SGPT) 18 U/L 13 U/L Total Bilirubin 1.2 MG/DL 0.8 MG/DL Sodium Level 138 MEQ/L 142 MEQ/L Potassium Level 3.1 MEQ/L 4.2 MEQ/L Chloride Level 104 MEQ/L 108 MEQ/L Carbon Dioxide Level 19.5 MEQ/L 25.8 MEQ/L Anion Gap 15 MEQ/L 8 MEQ/L Estimat Glomerular Filtration Rate 37 ML/MIN 42 ML/MIN Total Creatine Kinase 66 U/L Troponin I LESS THAN 0.02 NG/ML LESS THAN 0.02 NG/ML B-Type Natriuretic Peptide 51 PG/ML Lipase 446 U/L 223 U/L Thyroid Stimulating Hormone 3rd Gen 2.540 uIU/ML Imaging Last 24 hours Impressions Chest X-Ray 08/14/172053 Signed Impressions: CONCLUSION: 1. 9 mm calcified granuloma at the left lung base. 2. Stable compared to prior dated 01/17/2017. 3. No acute abnormality. Objective Remarks General: NAD, AAox3 Chest: CTA Cardiac: Rodger, regular Abd: +BS, soft ND, mild epigastric tenderness Ext: No edema A/P Problem List: (1) Chest pain, rule out acute myocardial infarction ICD Codes: R07.9 - Chest pain, unspecified Status: Acute Plan: Chest pain, resolved - Pt is a 61 y/o female with HTN, Hyperlipidemia, hypothyroidism, YUNIOR on CPAP, GERD, and hx of gastric sleeve surgery in 2016 - Pt was admitted to [facility] [place] on 08/14/17 with complaints of epigastric abdominal pain , intractable N/V and chest pain - Pt had serial CE which were negative. - EKG at admission noted sinus bradycardia, U waves, premature junctional contractions. Previous EKGs were reviewed and the bradycardia and U waves are similar to EKG findings in12/2016 - Cardiology was consulted at admission and they felt the premature junctional contractions, which are the only new finding on the EKG, is likely due to increased vagal tone from dehydration/electrolyte changes. - Pt with noted sinus rodger on telemetry. Outpt vitals noted pulse rate typically in the 50-60s - Pts chest pain has resolved since admission and being given IVF - Cardiology has signed off. (2) Abdominal pain ICD Codes: R10.9 - Unspecified abdominal pain Plan: Abdominal pain Nausea/Vomiting Episodic Diarrhea Hx of gastric sleeve surgery in 2015 - Pt began having epigastric abdominal pain, N/V and diarrhea around 6 days ago - She only had a few episodes of diarrhea and this resolved on the first day but the N/V and abd pain persisted. - She was seen in the ED on 08/13/[address] Abd/pelvis which noted minimal inflammatory changes about the base of the cecum with a normal appearing appendix. She was d/c from the ED that day as she felt clinically improved with IVF and antiemetics/pain control but symptoms returned - She has been unable to tolerate any PO intake in several days - She had noted acute kidney injury and multiple electrolyte abnormalities at admission. - She had a similar admission to [facility] [place] in 12/2016 and underwent EGD on 01/19/17 --> Class A esophagitis, gastritis, portal gastropathy. - She had a normal GB US and HIDA scan at that time. - GI has been consulted - Cont. Antiemetics PRN - Pain control PRN (3) Intractable nausea and vomiting ICD Codes: R11.2 - Nausea with vomiting, unspecified Status: Acute Plan: - See above (4) Hypokalemia ICD Codes: E87.6 - Hypokalemia Status: Acute Plan: - Improved with IVF - Monitor labs (5) Type 2 diabetes mellitus ICD Codes: E11.9 - Type 2 diabetes mellitus without complications Status: Chronic Plan: - NovoLog sliding scale - Accu checks (6) Hypertension ICD Codes: I10 - Essential (primary) hypertension Status: Chronic Plan: - Pt has not been able to tolerate any oral intake or pills for several days and her BP was quite high at admission - This has improved. - Pt is on Norvasc 2.5mg po daily at home - Vasotec PRN Problem Qualifiers (1) Abdominal pain: Qualified Codes: R10.13 - Epigastric pain Janette Lenz Aug 15, 2017 09:24
[2017-08-15] MEDS ORDERED: PILL SPLITTER OTHER PRN (09:30)
[2017-08-15] MEDS: amLODIPine BESYLATE 5 MG TAB PO SCH (09:49)
[2017-08-15] MEDS: SODIUM CHLORIDE 0.9% FLUSH 10 ML FLUSH IV FLUSH SCH ×2 (09:49→21:00)
--- NOTE | 2017-08-15 11:38 | PD.CONS ---
HPI History of Present Illness This is a 61 year old female with a past medical history of DM, HTN, hypothyroidism, gastric sleeve in 2014 who presented last Sunday she has been having nausea, vomiting, epigastric abdominal pain, and low-grade fevers to [facility] ED. had CT 08/13 abdomen done which showed mild inflammation of the cecum. She was given medication and her symptoms improved some. States she went back to work the next day, but symptoms returned, wasn't able to keep anything down. Labs on admission lipase 446 which has since normalize, normal LFTs, and dehydration. Pt denies previous hx of pancreatitis, denies any new medication, alcohol intake or NSAIDs. Pt had similar symptoms last yr, HIDA was negative, Pt with hx of gastric sleeve and this was thought to be too tight causing issues with N/V. S/p EGD on 01/19/2017 --->There was LA Class A esophagitis noted. There was erythematous gastritis in the gastric antrum; biopsy was performed and was benign . Portal hypertensive gastropathy was found in the gastric body. Normal duodenal mucosa in the bulb and second portion of the duodenum and was suppose to return in 4 weeks but that wasn't done. Last colonoscopy was in 2015 which showed benign polyps and internal hemorrhoids. Pt currently tolerating liquids ok, still with epigastric pain. Had diarrhea for 2 days but not any more. No hematemesis or hematochezia. (Storm Baires) PFSH Past Medical History diabetes,hypertension hyperlipids,GERD hypothyroid anxiety Past Surgical History gastric sleeve 2014, tonsil,ovarian surgery hernia EGd/colonoscopy (Storm Baires) Coded Allergies: penicillin G (Unverified Allergy, Mild, HIVES, 08/13/17) Medications Current Medications Medications (Trade) Dose Ordered Sig/Christy Route Start Time Stop Time Status Last Admin (Synthroid) 50 mcg DAILY@0700 PO 08/15/17 07:00 08/15/17 07:00 (Zofran Odt) 4 mg Q6HR PRN SL 08/14/17 23:00 (NovoLOG SUPPLEMENTAL SCALE) 1 ACHS SLIDING SCALE SQ 08/15/17 08:00 (NS Flush) 2 ml BID IV FLUSH 08/15/17 09:00 08/15/17 09:49 (NS Flush) 2 ml UNSCH PRN IV FLUSH 08/14/17 23:00 (Nitroglycerin 2% Oint) 1 inch Q6HR TOP 08/15/17 00:00 08/15/17 06:00 (Nitrostat Sl) 0.4 mg Q5M PRN SL 08/14/17 23:00 (Morphine Inj) 2 mg Q3HR PRN IV PUSH 08/14/17 23:00 (Lovenox Inj) 40 mg Q24H SQ 08/14/17 23:00 08/15/17 00:24 (Protonix Inj) 40 mg Q24H IV PUSH 08/14/17 23:00 08/15/17 00:23 (Vasotec Inj) 1.25 mg Q8H PRN IV PUSH 08/14/17 23:15 Potassium Chloride/Sodium Chloride 1,000 ml @ 70 mls/hr [id number] IV 08/14/17 23:30 08/15/17 00:37 (Tylenol) 325 mg Q4H PRN PO 08/14/17 23:30 (Norvasc) 2.5 mg DAILY PO 08/15/17 09:30 08/15/17 09:49 (Pill Splitter) 1 ea UNSCH PRN OTHER 08/15/17 09:30 Family History No family hx of IBD or colon cancer Social History No alcohol No smoking (Storm Baires) Review of Systems Constitutional: COMPLAINS OF: Chills Endocrine: DENIES: Polyuria Eyes: DENIES: Double Vision Ears, nose, mouth, throat: DENIES: Hoarseness Respiratory: DENIES: Shortness of breath Cardiovascular: COMPLAINS OF: Chest pain Gastrointestinal: COMPLAINS OF: Abdominal pain, Diarrhea, Nausea, Vomiting, Anorexia, DENIES: Black stools, Bloody stools, Constipation, Difficulty Swallowing, Odynophagia, Swelling of Abdomen, Heartburn, Hematemesis Genitourinary: DENIES: Hematuria Musculoskeletal: DENIES: Back pain Integumentary: DENIES: Jaundice Hematologic/lymphatic: DENIES: Bruising Immunologic/allergic: DENIES: Eczema Neurologic: DENIES: Abnormal gait Psychiatric: DENIES: Anxiety (Storm Baires) GI Exam Vitals I&O Vital Signs Date Time Temp Pulse Resp B/P (MAP) Pulse Ox O2 Delivery O2 Flow Rate FiO2 6/27/18 07:49 97.3 47 12 129/68 (88) 98 08/15/17 04:04 98.4 56 16 114/65 (81) 98 08/15/17 00:06 99.0 57 16 175/82 (113) 98 08/14/17 23:00 62 18 164/80 (108) 100 Room Air 08/14/17 20:50 99.4 08/14/17 20:45 60 22 211/97 (135) 100 Room Air 08/14/17 20:45 22 08/14/17 20:38 55 20 Imaging Last Impressions Chest X-Ray 08/14/172053 Signed Impressions: CONCLUSION: 1. 9 mm calcified granuloma at the left lung base. 2. Stable compared to prior dated 01/17/2017. 3. No acute abnormality. Laboratory Test 08/14/17 21:13 08/15/17 03:26 08/15/17 10:15 White Blood Count 9.6 TH/MM3 10.9 TH/MM3 Red Blood Count 4.54 MIL/MM3 4.10 MIL/MM3 Hemoglobin 14.1 GM/DL 12.8 GM/DL Hematocrit 40.6 % 37.3 % Mean Corpuscular Volume 89.5 FL 91.0 FL Mean Corpuscular Hemoglobin 31.0 PG 31.2 PG Mean Corpuscular Hemoglobin Concent 34.7 % 34.3 % Red Cell Distribution Width 12.5 % 12.7 % Platelet Count 287 TH/MM3 284 TH/MM3 Mean Platelet Volume 8.1 FL 7.7 FL Neutrophils (%) (Auto) 71.2 % 64.7 % Lymphocytes (%) (Auto) 21.7 % 27.4 % Monocytes (%) (Auto) 6.1 % 7.1 % Eosinophils (%) (Auto) 0.6 % 0.4 % Basophils (%) (Auto) 0.4 % 0.4 % Neutrophils # (Auto) 6.8 TH/MM3 7.0 TH/MM3 Lymphocytes # (Auto) 2.1 TH/MM3 3.0 TH/MM3 Monocytes # (Auto) 0.6 TH/MM3 0.8 TH/MM3 Eosinophils # (Auto) 0.1 TH/MM3 0.0 TH/MM3 Basophils # (Auto) 0.0 TH/MM3 0.0 TH/MM3 CBC Comment DIFF FINAL DIFF FINAL Differential Comment Prothrombin Time 11.4 SEC Prothromb Time International Ratio 1.1 RATIO Activated Partial Thromboplast Time 21.0 SEC Blood Urea Nitrogen 33 MG/DL 27 MG/DL Creatinine 1.43 MG/DL 1.28 MG/DL Random Glucose 128 MG/DL 101 MG/DL Total Protein 7.8 GM/DL 7.0 GM/DL Albumin 3.8 GM/DL 3.4 GM/DL Calcium Level 8.9 MG/DL 8.2 MG/DL Magnesium Level 1.9 MG/DL Alkaline Phosphatase 60 U/L 51 U/L Aspartate Amino Transf (AST/SGOT) 9 U/L 11 U/L Alanine Aminotransferase (ALT/SGPT) 18 U/L 13 U/L Total Bilirubin 1.2 MG/DL 0.8 MG/DL Sodium Level 138 MEQ/L 142 MEQ/L Potassium Level 3.1 MEQ/L 4.2 MEQ/L Chloride Level 104 MEQ/L 108 MEQ/L Carbon Dioxide Level 19.5 MEQ/L 25.8 MEQ/L Anion Gap 15 MEQ/L 8 MEQ/L Estimat Glomerular Filtration Rate 37 ML/MIN 42 ML/MIN Total Creatine Kinase 66 U/L Troponin I LESS THAN 0.02 NG/ML LESS THAN 0.02 NG/ML LESS THAN 0.02 NG/ML B-Type Natriuretic Peptide 51 PG/ML Lipase 446 U/L 223 U/L Thyroid Stimulating Hormone 3rd Gen 2.540 uIU/ML Physical Examination HEENT: normocephalic; atraumatic; no jaundice. CHEST: Chest is clear to auscultation and percussion. CARDIAC: Regular rate and rhythm with no murmur gallop or rubs. ABDOMEN: Soft, nondistended,epigastric tenderness; no hepatosplenomegaly; bowel sounds are present in all four quadrants. EXTREMITIES: No clubbing, cyanosis, or edema. SKIN: Normal; no rash; no jaundice. MAILING JOGGER: No focal deficits; alert and oriented times three. (Storm Baires) Assessment and Plan Plan - Nausea, vomiting, epigastric abdominal pain- presented last Sunday to ED with nausea, vomiting, epigastric abdominal pain, and low-grade fevers. had CT 08/13/17 abdomen done which showed mild inflammation of the cecum. She was given medication and her symptoms improved some. States she went back to work the next day, but symptoms returned, wasn't able to keep anything down. Labs on admission lipase 446 which has since normalize, normal LFTs, and dehydration. Pt denies previous hx of pancreatitis, denies any new medication, alcohol intake or NSAIDs. Pt had similar symptoms last yr, HIDA was negative, Pt with hx of gastric sleeve and this was thought to be too tight causing issues with N/V. S/p EGD on 01/19/2017 --->There was LA Class A esophagitis noted. There was erythematous gastritis in the gastric antrum; biopsy was performed and was benign . Portal hypertensive gastropathy was found in the gastric body. Normal duodenal mucosa in the bulb and second portion of the duodenum and was suppose to return in 4 weeks but that wasn't done. Last colonoscopy was in 2015 which showed benign polyps and internal hemorrhoids. Pt currently tolerating liquids ok, still with epigastric pain. Had diarrhea for 2 days but not any more. No hematemesis or hematochezia. - Inflammation in the cecum- WBC wnl, will need colonoscopy - Atypical chest pain/prolonged QT on EKG- cardiology on the case. - Past medical history of DM, HTN, hypothyroidism, per attending Plan: - clear - EGD/dill/colonoscopy once cleared by cardiology Pt would like to have surgical anastomosis stretched if needed - Obtain consents - monitor labs - Supportive care - Pt seen and examined by Dr. Hernandez and myself and this note is written on his behalf. (Storm Baires) Physician Comments Seen and examined with VERONICA, abdominal pain improved since admission but not gone altogether. EGD/Dilation and colonoscopy planned for tomorrow. Cleared by cardiology. Discussed with pt. and daughter at the bedside. Thank you (Leslye Hernandez MD) Storm Baires Aug 15, 2017 11:38 Leslye Hernandez MD Aug 15, 2017 13:12
[2017-08-15] MEDS ORDERED: MAGNESIUM CITRATE SOLN 300 ML BTL PO ONE ×2 (13:15→16:00)
--- NOTE | 2017-08-15 20:49 | EKG ---
Date Performed: 08/14/2017 Time Performed: 21:21:46 PTAGE: 61 years EKG: JUNCTIONAL BRADYCARDIA MODERATE INTRAVENTRICULAR CONDUCTION DELAY PROLONGED QT INTERVAL ABN ORMAL ECG PREVIOUS TRACING : 08/13/2017 13.37 Since the previous tracing, no significant change noted DOCTOR: Meri Becerril Interpretating Date/Time 08/15/2017 20:47:20
[2017-08-16] VITALS (12 sets, daily range): BP systolic 95–224; BP diastolic 57–110; PULSE 48–67; RESP 12–20; TEMP 98.2–98.9; O2SAT 97–100
[2017-08-16] MEDS: NITROGLYCERIN 2% OINT 1 GM PACKET TOP SCH ×4 (06:00→13:56)
[2017-08-16] MEDS: LEVOTHYROXINE SODIUM 50 MCG TAB PO SCH (06:34)
[2017-08-16] MEDS: 1/2 NS + KCL 20 MEQ INJ 1,000 ML IV SCH (06:35)
[2017-08-16 07:35] LABS: BICARBONATE 25.7 MEQ/L (21.0-32.0); CALCIUM 8.9 MG/DL (8.5-10.1); CREATININE 1.09 MG/DL (0.50-1.00); MAGNESIUM 2.6 MG/DL (1.5-2.5)
[2017-08-16 07:36] LABS: AUTOMATED NEUTROPHIL # 4.4 TH/MM3 (1.8-7.7); BASOPHIL # 0.1 TH/MM3 (0-0.2); BASOPHIL % 0.6 % (0.0-2.0); EOSINOPHIL # 0.2 TH/MM3 (0-0.4); EOSINOPHIL % 2.4 % (0.0-4.0); HEMATOCRIT 38.1 % (35.0-46.0); HEMOGLOBIN 12.9 GM/DL (11.6-15.3); LYMPHOCYTE # 3.3 TH/MM3 (1.0-4.8); MEAN CELL VOLUME 91.5 FL (80.0-100.0); MEAN CORPUSCULAR HGB CONC 33.9 % (32.0-36.0); MEAN PLATELET VOLUME 7.8 FL (7.0-11.0); MONO % 7.3 % (0.0-8.0); MONOCYTE # 0.6 TH/MM3 (0-0.9); NEUT % 51.7 % (16.0-70.0); PLATELET COUNT 271 TH/MM3 (150-450); RED BLOOD COUNT 4.17 MIL/MM3 (4.00-5.30); RED CELL DISTRIBUTION WIDTH 12.6 % (11.6-17.2); WHITE BLOOD COUNT 8.6 TH/MM3 (4.0-11.0)
[2017-08-16] MEDS: INSULIN ASPART SUPPLEMENTAL SCALE SQ SCH ×4 (08:36→21:00)
[2017-08-16] MEDS: SODIUM CHLORIDE 0.9% FLUSH 10 ML FLUSH IV FLUSH SCH ×2 (09:34→21:00)
[2017-08-16] MEDS: amLODIPine BESYLATE 5 MG TAB PO SCH (09:34)
--- NOTE | 2017-08-16 10:41 | HHI.PR ---
Subjective Remarks Pt overall feeling better She is going for EGD/colonoscopy today Afebrile Objective Vitals Vital Signs Date Time Temp Pulse Resp B/P (MAP) Pulse Ox O2 Delivery O2 Flow Rate FiO2 08/16/17 08:00 50 08/16/17 07:39 98.2 49 12 139/65 (89) 100 08/16/17 04:24 98.4 56 16 122/62 (82) 98 08/16/17 00:14 98.7 50 16 115/61 (79) 97 08/15/17 23:00 54 08/15/17 20:44 98.7 55 16 124/75 (91) 98 08/15/17 16:18 98.9 51 12 127/71 (89) 98 08/15/17 15:00 52 08/15/17 12:35 98.2 52 16 138/81 (100) 98 Result Diagram: 08/16/17 0610 08/16/17 0610 Other Results Laboratory Tests Test 08/14/17 21:13 08/15/17 03:26 08/15/17 10:15 08/16/17 06:10 White Blood Count 9.6 TH/MM3 10.9 TH/MM3 8.6 TH/MM3 Red Blood Count 4.54 MIL/MM3 4.10 MIL/MM3 4.17 MIL/MM3 Hemoglobin 14.1 GM/DL 12.8 GM/DL 12.9 GM/DL Hematocrit 40.6 % 37.3 % 38.1 % Mean Corpuscular Volume 89.5 FL 91.0 FL 91.5 FL Mean Corpuscular Hemoglobin 31.0 PG 31.2 PG 31.0 PG Mean Corpuscular Hemoglobin Concent 34.7 % 34.3 % 33.9 % Red Cell Distribution Width 12.5 % 12.7 % 12.6 % Platelet Count 287 TH/MM3 284 TH/MM3 271 TH/MM3 Mean Platelet Volume 8.1 FL 7.7 FL 7.8 FL Neutrophils (%) (Auto) 71.2 % 64.7 % 51.7 % Lymphocytes (%) (Auto) 21.7 % 27.4 % 38.0 % Monocytes (%) (Auto) 6.1 % 7.1 % 7.3 % Eosinophils (%) (Auto) 0.6 % 0.4 % 2.4 % Basophils (%) (Auto) 0.4 % 0.4 % 0.6 % Neutrophils # (Auto) 6.8 TH/MM3 7.0 TH/MM3 4.4 TH/MM3 Lymphocytes # (Auto) 2.1 TH/MM3 3.0 TH/MM3 3.3 TH/MM3 Monocytes # (Auto) 0.6 TH/MM3 0.8 TH/MM3 0.6 TH/MM3 Eosinophils # (Auto) 0.1 TH/MM3 0.0 TH/MM3 0.2 TH/MM3 Basophils # (Auto) 0.0 TH/MM3 0.0 TH/MM3 0.1 TH/MM3 CBC Comment DIFF FINAL DIFF FINAL DIFF FINAL Differential Comment Prothrombin Time 11.4 SEC Prothromb Time International Ratio 1.1 RATIO Activated Partial Thromboplast Time 21.0 SEC Blood Urea Nitrogen 33 MG/DL 27 MG/DL 18 MG/DL Creatinine 1.43 MG/DL 1.28 MG/DL 1.09 MG/DL Random Glucose 128 MG/DL 101 MG/DL 77 MG/DL Total Protein 7.8 GM/DL 7.0 GM/DL Albumin 3.8 GM/DL 3.4 GM/DL Calcium Level 8.9 MG/DL 8.2 MG/DL 8.9 MG/DL Magnesium Level 1.9 MG/DL 2.6 MG/DL Alkaline Phosphatase 60 U/L 51 U/L Aspartate Amino Transf (AST/SGOT) 9 U/L 11 U/L Alanine Aminotransferase (ALT/SGPT) 18 U/L 13 U/L Total Bilirubin 1.2 MG/DL 0.8 MG/DL Sodium Level 138 MEQ/L 142 MEQ/L 141 MEQ/L Potassium Level 3.1 MEQ/L 4.2 MEQ/L 3.7 MEQ/L Chloride Level 104 MEQ/L 108 MEQ/L 107 MEQ/L Carbon Dioxide Level 19.5 MEQ/L 25.8 MEQ/L 25.7 MEQ/L Anion Gap 15 MEQ/L 8 MEQ/L 8 MEQ/L Estimat Glomerular Filtration Rate 37 ML/MIN 42 ML/MIN 51 ML/MIN Total Creatine Kinase 66 U/L Troponin I LESS THAN 0.02 NG/ML LESS THAN 0.02 NG/ML LESS THAN 0.02 NG/ML B-Type Natriuretic Peptide 51 PG/ML Lipase 446 U/L 223 U/L Thyroid Stimulating Hormone 3rd Gen 2.540 uIU/ML Imaging Last 24 hours Impressions Chest X-Ray 08/14/172053 Signed Impressions: CONCLUSION: 1. 9 mm calcified granuloma at the left lung base. 2. Stable compared to prior dated 01/17/2017. 3. No acute abnormality. Objective Remarks General: NAD, AAox3 Chest: CTA Cardiac: Remigio, regular Abd: +BS, soft ND, mild epigastric tenderness Ext: No edema A/P Problem List: (1) Chest pain, rule out acute myocardial infarction ICD Codes: R07.9 - Chest pain, unspecified Status: Acute Plan: Chest pain, resolved - Pt is a 61 y/o female with HTN, Hyperlipidemia, hypothyroidism, YUNIOR on CPAP, GERD, and hx of gastric sleeve surgery in 2015 - Pt was admitted to [facility] [place] on 08/14/17 with complaints of epigastric abdominal pain , intractable N/V and chest pain - Pt had serial CE which were negative. - EKG at admission noted sinus bradycardia, U waves, premature junctional contractions. Previous EKGs were reviewed and the bradycardia and U waves are similar to EKG findings in12/2016 - Cardiology was consulted at admission and they felt the premature junctional contractions, which are the only new finding on the EKG, is likely due to increased vagal tone from dehydration/electrolyte changes. - Pt with noted sinus remigio on telemetry. Outpt vitals noted pulse rate typically in the 50-60s - Pts chest pain has resolved since admission and being given IVF - Cardiology has signed off. (2) Abdominal pain ICD Codes: R10.9 - Unspecified abdominal pain Plan: Abdominal pain Nausea/Vomiting Episodic Diarrhea Hx of gastric sleeve surgery in 2015 - Pt began having epigastric abdominal pain, N/V and diarrhea around 6 days ago - She only had a few episodes of diarrhea and this resolved on the first day but the N/V and abd pain persisted. - She was seen in the ED on 08/13/[address] Abd/pelvis which noted minimal inflammatory changes about the base of the cecum with a normal appearing appendix. She was d/c from the ED that day as she felt clinically improved with IVF and antiemetics/pain control but symptoms returned - She had been unable to tolerate any PO intake in several days - She had noted acute kidney injury and multiple electrolyte abnormalities at admission. - She had a similar admission to [facility]- in 12/2016 and underwent EGD on 01/19/17 --> Class A esophagitis, gastritis, portal gastropathy. - She had a normal GB US and HIDA scan at that time. - GI is following - Pt to undergo EGD/colonoscopy today - Cont. Antiemetics PRN - Pain control PRN (3) Intractable nausea and vomiting ICD Codes: R11.2 - Nausea with vomiting, unspecified Status: Acute Plan: - See above (4) Hypokalemia ICD Codes: E87.6 - Hypokalemia Status: Acute Plan: - Improved with IVF - Monitor labs (5) Type 2 diabetes mellitus ICD Codes: E11.9 - Type 2 diabetes mellitus without complications Status: Chronic Plan: - NovoLog sliding scale - Accu checks (6) Hypertension ICD Codes: I10 - Essential (primary) hypertension Status: Chronic Plan: - Pt has not been able to tolerate any oral intake or pills for several days and her BP was quite high at admission - This has improved. - Pt is on Norvasc 2.5mg po daily at home - Vasotec PRN Assessment and Plan Patient examined. Assessment and plan formulated with Janette Lenz PA-C. I agree with the above. n/v after her egd. no dilation required ppi/zofran and some ivf and attempt po then dc Problem Qualifiers (1) Abdominal pain: Qualified Codes: R10.13 - Epigastric pain Janette Lenz Aug 16, 2017 10:41 Iker Lozano MD Aug 16, 2017 15:18
--- NOTE | 2017-08-16 11:36 | GIPROC ---
[facility] [address] [facility]. [facility], [address] EGD PROCEDURE REPORT EXAM DATE: 08/16/2017 PATIENT NAME: Rita Mckinnon MR #: [id number] BIRTHDATE: 1955 ATTENDING: Leslye Hernandez MD ORDER #: [id number] MEN'S FURNISHINGS SALESPERSON: Chaya Alba and Gretchen Rogers STATUS: inpatient INDICATIONS: The patient is a 61 yr old female here for an EGD due to epigastric abdominal pain PROCEDURE PERFORMED: EGD w/ biopsy MEDICATIONS: None and Per Anesthesia. TOPICAL ANESTHETIC: CONSENT: The patient understands the risks and benefits of the procedure and understands that these risks include, but are not limited to: sedation, allergic reaction, infection, perforation and/or bleeding. Alternative means of evaluation and treatment include, among others: physical exam, x-rays, and/or surgical intervention. The patient elects to proceed with this endoscopic procedure. medical equipment was checked for proper function. Hand hygiene and appropriate measures for infection prevention was taken. After the risks, benefits and alternatives of the procedure were thoroughly explained, Informed consent was verified, confirmed and timeout was successfully executed by the treatment team. The patient was anesthetized with topical anesthesia and the EC-[id number] (Pedi C) endoscope was introduced through the mouth and advanced to the second portion of the duodenum. Retroflexed views revealed a hiatal hernia The gastroscope was then slowly withdrawn and removed. ESOPHAGUS: There was LA Class A esophagitis noted. A biopsy was performed using cold forceps. Sample sent for histology. STOMACH: There was erythematous moderate gastritis in the gastric body and gastric antrum. Multiple biopsies were performed using cold forceps. Sample sent for histology. DUODENUM: The duodenal mucosa appeared normal in the bulb and second portion of the duodenum. ADVERSE EVENTS: There were no complications. IMPRESSIONS: 1. There was LA Class A esophagitis noted; biopsy was performed 2. There was erythematous gastritis in the gastric body and gastric antrum; multiple biopsies were performed 3. Normal duodenal mucosa in the bulb and second portion of the duodenum 4. Retroflexed views revealed a hiatal hernia RECOMMENDATIONS: 1. Await biopsy results. Biopsy results will not be ready for 7-10 days. If you don't hear from us in two weeks, call our office for biopsy results. 2. Anti-reflux regimen 3. Continue PPI 4. Avoid NSAIDS PATIENT CONDITION: stable DISPOSITION: Inpatient REPEAT EXAM: Return 1 year EGD pending biopsy results Leslye Hernandez MD eSigned: Leslye Hernandez MD 08/16/2017 11:35 AM cc: PATIENT NAME: Pratibha Rita D MR#: [id number]
--- NOTE | 2017-08-16 11:46 | GIPROC ---
[facility] [address] [facility]. [facility], [address] COLONOSCOPY PROCEDURE REPORT EXAM DATE: 08/16/2017 PATIENT NAME: Rita Mckinnon MR #: [id number] BIRTHDATE: 1955 ENDOSCOPIST: Leslye Hernandez MD ORDER #: [id number] CODE ENFORCEMENT SUPERVISOR: Chaya Alba and Gretchen Rogers STATUS: inpatient INDICATIONS: The patient is a 61 yr old female here for a colonoscopy due to unexplained diarrhea PROCEDURE PERFORMED: Colonoscopy with biopsy MEDICATIONS: None and Per Anesthesia. PREP QUALITY: The Troy Bowel Prep Score was Right colon 2, Mid colon 2, and Left colon 2. Total = 6. PREP TYPE:Magnesium Citrate PREP TYPE:Type: ESTIMATED BLOOD LOSS: None CONSENT: The patient understands the risks and benefits of the procedure and understands that these risks include, but are not limited to: sedation, allergic reaction, infection, perforation and/or bleeding. Alternative means of evaluation and treatment include, among others: physical exam, x-rays, and/or surgical intervention. The patient elects to proceed with this endoscopic procedure. medical equipment was checked for proper function. Hand hygiene and appropriate measures for infection prevention was taken. After the risks, benefits and alternatives of the procedure were thoroughly explained, Informed consent was verified, confirmed and timeout was successfully executed by the treatment team. A digital exam revealed external hemorrhoids The Pentax EC-[id number] endoscope was introduced through the anus and advanced to the cecum, which was identified by both the appendix and ileocecal valve. The instrument was then slowly withdrawn as the colon was fully examined. COLON FINDINGS: A smooth flat polyp ranging between 3-5mm in size was found in the ascending colon. Multiple biopsies were performed using cold forceps. A small patch of abnormal mucosa was found at the cecum. The mucosa was congested and edematous. A biopsy of the area was performed using cold forceps. Retroflexed views revealed internal hemorrhoids and Retroflexed views revealed medium internal hemorrhoids The scope was then completely withdrawn from the patient and the procedure terminated. PROCEDURE WITHDRAWAL TIME:6minutes ADVERSE EVENTS: There were no complications. IMPRESSIONS: 1. A flat polyp ranging between 3-5mm in size was found in the ascending colon; multiple biopsies were performed using cold forceps 2. Small abnormal mucosa was found at the cecum; The mucosa was congested and edematous; biopsy of the area was performed using cold forceps 3. Retroflexed views revealed internal hemorrhoids 4. Retroflexed views revealed medium internal hemorrhoids 5. Revealed external hemorrhoids RECOMMENDATIONS: 1. Await biopsy results. Biopsy results will not be ready for 7-10 days. If you don't hear from us in two weeks, call our office for results. 2. Continue surveillance 3. Yearly hemoccult 4. Follow-up: GI Clinic 2 week(s) RECALL: Return 1 year Colonoscopy, pending biopsy results Leslye Hernandez MD eSigned: Leslye Hernandez MD 08/16/2017 11:46 AM cc: PATIENT NAME: Rita Mckinnon MR#: [id number]
[2017-08-16] MEDS ORDERED: PROPOFOL 200 MG/20 ML AMP IV ONE (12:00)
[2017-08-16] MEDS ORDERED: LIDOCAINE HCL 1% PF 5 ML SYRINGE OTHER ONE (12:00)
[2017-08-16] MEDS ORDERED: PANTOPRAZOLE SODIUM 40 MG VIAL IV PUSH SCH (14:30)
[2017-08-16] MEDS ORDERED: ONDANSETRON HCL 4 MG/2 ML VIAL IV ONE (14:30)
[2017-08-16] MEDS: DEXT 5%-NACL 0.9% 1000 ML INJ 1,000 ML IV SCH (14:56)
[2017-08-16] MEDS ORDERED: METOCLOPRAMIDE HCL 10 MG/2 ML VIAL IV PUSH PRN (16:30)
[2017-08-16] MEDS ORDERED: cloNIDine HCL 0.1 MG TAB PO PRN (19:00)
[2017-08-17] MEDS: ENOXAPARIN SODIUM 40 MG/0.4 ML SYRINGE SQ SCH (01:36)
[2017-08-17 04:35] VITALS: BP 107/61; PULSE 45; RESP 16; TEMP 97.3; O2SAT 99
[2017-08-17] MEDS: NITROGLYCERIN 2% OINT 1 GM PACKET TOP SCH ×2 (05:02)
[2017-08-17] MEDS: LEVOTHYROXINE SODIUM 50 MCG TAB PO SCH (06:46)
[2017-08-17] MEDS: DEXT 5%-NACL 0.9% 1000 ML INJ 1,000 ML IV SCH (06:47)
[2017-08-17 08:16] VITALS: PULSE 44
[2017-08-17 08:20] VITALS: BP 113/64; PULSE 48; RESP 16; TEMP 98.1; O2SAT 98
[2017-08-17] MEDS: SODIUM CHLORIDE 0.9% FLUSH 10 ML FLUSH IV FLUSH SCH (09:00)
[2017-08-17] MEDS: INSULIN ASPART SUPPLEMENTAL SCALE SQ SCH ×2 (09:20→12:00)
[2017-08-17] MEDS: amLODIPine BESYLATE 5 MG TAB PO SCH (09:45)
--- NOTE | 2017-08-17 09:57 | HHI.PR ---
Subjective Remarks Pt developed N/V and dry heaving after drinking orange juice after her EGD/ colonoscopy yesterday She continued to be nauseated with dry heaves for the afternoon and evening time yesterday Pt was given Zofran IV and family requested Reglan IV which she was given one dose of yesterday evening. She has not had any further nausea or vomiting since late last night Her family at bedside is concerned about her slow heart rate. Telemetry shows that overnight her HR drops into the 40's and during the day she has been in the 50's for the most part. Review of her outpt records shows that her HR is typically in the 50-70's Pt has not had any dizziness or weakness since admission. She has been ambulating to the bathroom without difficulty Objective Vitals Vital Signs Date Time Temp Pulse Resp B/P (MAP) Pulse Ox O2 Delivery O2 Flow Rate FiO2 08/17/17 08:20 98.1 48 16 113/64 (80) 98 08/17/17 08:16 44 08/17/17 04:35 97.3 45 16 107/61 (76) 99 08/16/17 23:26 98.3 62 16 110/58 (75) 98 08/16/17 23:00 50 08/16/17 21:17 98.3 54 16 95/57 (70) 98 08/16/17 18:39 67 20 216/94 (134) 97 08/16/17 16:56 98.9 53 16 199/91 (127) 98 Manual Cuff/Auscultation 08/16/17 16:15 224/110 (148) 200/102 (134) 08/16/17 15:38 98.7 50 16 190/101 (130) 98 08/16/17 15:00 48 08/16/17 12:13 60 16 148/72 (97) 99 08/16/17 11:53 98.0 56 16 144/74 (97) 99 Result Diagram: 08/16/17 0610 08/16/17 0610 Other Results Laboratory Tests Test 08/15/17 10:15 08/16/17 06:10 Troponin I LESS THAN 0.02 NG/ML White Blood Count 8.6 TH/MM3 Red Blood Count 4.17 MIL/MM3 Hemoglobin 12.9 GM/DL Hematocrit 38.1 % Mean Corpuscular Volume 91.5 FL Mean Corpuscular Hemoglobin 31.0 PG Mean Corpuscular Hemoglobin Concent 33.9 % Red Cell Distribution Width 12.6 % Platelet Count 271 TH/MM3 Mean Platelet Volume 7.8 FL Neutrophils (%) (Auto) 51.7 % Lymphocytes (%) (Auto) 38.0 % Monocytes (%) (Auto) 7.3 % Eosinophils (%) (Auto) 2.4 % Basophils (%) (Auto) 0.6 % Neutrophils # (Auto) 4.4 TH/MM3 Lymphocytes # (Auto) 3.3 TH/MM3 Monocytes # (Auto) 0.6 TH/MM3 Eosinophils # (Auto) 0.2 TH/MM3 Basophils # (Auto) 0.1 TH/MM3 CBC Comment DIFF FINAL Differential Comment Blood Urea Nitrogen 18 MG/DL Creatinine 1.09 MG/DL Random Glucose 77 MG/DL Calcium Level 8.9 MG/DL Magnesium Level 2.6 MG/DL Sodium Level 141 MEQ/L Potassium Level 3.7 MEQ/L Chloride Level 107 MEQ/L Carbon Dioxide Level 25.7 MEQ/L Anion Gap 8 MEQ/L Estimat Glomerular Filtration Rate 51 ML/MIN Imaging Last 24 hours Impressions Chest X-Ray 08/14/172053 Signed Impressions: CONCLUSION: 1. 9 mm calcified granuloma at the left lung base. 2. Stable compared to prior dated 01/17/2017. 3. No acute abnormality. Objective Remarks General: NAD, AAox3 Chest: CTA Cardiac: Rodger, regular Abd: +BS, soft ND, mild epigastric tenderness Ext: No edema A/P Problem List: (1) Chest pain, rule out acute myocardial infarction ICD Codes: R07.9 - Chest pain, unspecified Status: Acute Plan: Chest pain, resolved - Pt is a 61 y/o female with HTN, Hyperlipidemia, hypothyroidism, YUNIOR on CPAP, GERD, and hx of gastric sleeve surgery in 2016 - [place] [facility] with complaints of epigastric abdominal pain , intractable N/V and chest pain - Pt had serial CE which were negative. - EKG at admission noted sinus bradycardia, U waves, premature junctional contractions. Previous EKGs were reviewed and the bradycardia and U waves are similar to EKG findings in12/2016 - Cardiology was consulted at admission and they felt the premature junctional contractions, which are the only new finding on the EKG, is likely due to increased vagal tone from dehydration/electrolyte changes. - Pt with noted sinus rodger on telemetry. Outpt vitals noted pulse rate typically in the 50-70s - Overnight her HRs decrease into the 40's and family is very concerned about this. The patient has not been symptomatic of the bradycardia and denies any dizziness or weakness. - Pts chest pain has resolved since admission and being given IVF - Cardiology has signed off. (2) Abdominal pain ICD Codes: R10.9 - Unspecified abdominal pain Plan: Abdominal pain Nausea/Vomiting Episodic Diarrhea Hx of gastric sleeve surgery in 2015 - Pt began having epigastric abdominal pain, N/V and diarrhea around 6 days ago - She only had a few episodes of diarrhea and this resolved on the first day but the N/V and abd pain persisted. - She was seen in the ED on 08/13/[address] Abd/pelvis which noted minimal inflammatory changes about the base of the cecum with a normal appearing appendix. She was d/c from the ED that day as she felt clinically improved with IVF and antiemetics/pain control but symptoms returned - She had been unable to tolerate any PO intake in several days - She had noted acute kidney injury and multiple electrolyte abnormalities at admission. - She had a similar admission to [facility] [place] [place] in 12/2016 and underwent EGD on 01/19/17 --> Class A esophagitis, gastritis, portal gastropathy. - She had a normal GB US and HIDA scan at that time. - GI is following - Pt underwent EGD/colonoscopy (08/16) --> LA Class A esophagitis, erythematous gastritis in the gastric body and gastric antrum, hiatal hernia, a flat polyp ranging between 3-5mm in size was found in the ascending colon, small abnormal mucosa was found at the cecum, medium internal hemorrhoids, and external hemorrhoids - No dilation required - Feed patient this morning and see how she does - Cont. Antiemetics PRN - Pain control PRN (3) Intractable nausea and vomiting ICD Codes: R11.2 - Nausea with vomiting, unspecified Status: Acute Plan: - See above (4) Hypokalemia ICD Codes: E87.6 - Hypokalemia Status: Acute Plan: - Improved with IVF - Monitor labs (5) Type 2 diabetes mellitus ICD Codes: E11.9 - Type 2 diabetes mellitus without complications Status: Chronic Plan: - NovoLog sliding scale - Accu checks (6) Hypertension ICD Codes: I10 - Essential (primary) hypertension Status: Chronic Plan: - Pt has not been able to tolerate any oral intake or pills for several days and her BP was quite high at admission - This has improved. - Pt is on Norvasc 2.5mg po daily at home - Vasotec PRN Problem Qualifiers (1) Abdominal pain: Qualified Codes: R10.13 - Epigastric pain Janette Lenz Aug 17, 2017 09:57
[2017-08-17 11:30] VITALS: PULSE 52
[2017-08-17 12:04] VITALS: BP 128/64; PULSE 50; RESP 18; TEMP 98.4; O2SAT 100
[2017-08-17] MEDS ORDERED: PROT40TA PO (12:37)
[2017-08-17] MEDS ORDERED: REGL5TAB PO (12:37)
--- NOTE | 2017-08-17 12:40 | HHI.DCPOC ---
Discharge Care Plan Diagnosis: (1) Bradyarrhythmia (2) Chest pain, rule out acute myocardial infarction (3) Intractable nausea and vomiting (4) Abdominal pain (5) Type 2 diabetes mellitus (6) Hypertension Goals to Promote Your Health * To prevent worsening of your condition and complications * To maintain your health at the optimal level Directions to Meet Your Goals Take your medications as prescribed Follow your dietary instruction Follow activity as directed Keep your appointments as scheduled Take your immunizations and boosters as scheduled If your symptoms worsen call your PCP, if no PCP go to Urgent Care Center or Emergency Room Smoking is Dangerous to Your Health. Avoid second hand smoke Call the 24-hour hour crisis hotline for domestic abuse at Janette Lenz Aug 17, 2017 12:39
--- NOTE | 2017-08-17 15:05 | HHI.DS ---
Discharge Summary Admission Date Aug 14, 2017 at 22:42 Discharge Date: Aug 17, 2017 Admitting Diagnosis Pancreatitis, hypokalemia, CP R/O ACS (1) Abdominal pain Diagnosis: Principal ICD Codes: R10.9 - Unspecified abdominal pain (2) Intractable nausea and vomiting Diagnosis: Principal ICD Codes: R11.2 - Nausea with vomiting, unspecified Status: Acute (3) Chest pain, rule out acute myocardial infarction Diagnosis: Secondary ICD Codes: R07.9 - Chest pain, unspecified Status: Acute (4) Hypokalemia Diagnosis: Secondary ICD Codes: E87.6 - Hypokalemia Status: Acute (5) Type 2 diabetes mellitus Diagnosis: Secondary ICD Codes: E11.9 - Type 2 diabetes mellitus without complications Status: Chronic (6) Hypertension Diagnosis: Secondary ICD Codes: I10 - Essential (primary) hypertension Status: Chronic (7) Bradycardia Diagnosis: Secondary ICD Codes: R00.1 - Bradycardia, unspecified Consultants Dr. Nino Calderon - Cardiology Brief History The patient is a 61 year old female who presents to the [facility] emergency department with a history of upper abdominal pain that she reports began on Sunday and has been associated with nausea, vomiting, diarrhea. She last had diarrhea on Sunday, 2 days ago. She was experiencing diarrhea 3-4 times per day. She is unsure whether she had any blood in her stool as she reports that she does not look at her stool. She reports that she has had chills without any fever. She reports that she was seen in the [place] emergency department yesterday related to the symptoms. Her nausea, vomiting, and abdominal pain were improved, therefore she was discharged home. Patient had CT scan abdomen showed mild inflammation. She reports that the symptoms recurred again at 4:30 PM today. She reports that the pain seems to also be present in her chest and is associated with shortness of breath, diaphoresis, described as uncomfortable heaviness. She denies any prior history of cardiac disease. She last had a stress test in 2014 in preparation for a gastric sleeve. She reports that yesterday she was told in [place] that her heart rate was slow in the 40s. Her primary care physician is Dr. Galicia. Her radiological metallurgist is Dr. Hernandez. She is unsure whether she has never been evaluated for gastroparesis. On review of systems otherwise, the patient denies having any cough or congestion, neck pain, urinary symptoms, or neurologic symptoms. The patient was brought in by ambulance services. The patient's blood sugar was 195. The patient does have a history of diabetes. The patient was also hypertensive with a blood pressure of 200 systolic. She reports that she has not taken her medications today due to the nausea . Will admit as labs consistent with pancreatitis and will rule out any cardiac process. CBC/BMP: 08/16/17 0610 08/16/17 0610 Significant Findings Laboratory Tests Test 08/14/17 21:13 08/15/17 03:26 08/15/17 10:15 08/16/17 06:10 Neutrophils (%) (Auto) 71.2 % (16.0-70.0) Activated Partial Thromboplast Time 21.0 SEC (24.3-30.1) Blood Urea Nitrogen 33 MG/DL (7-18) 27 MG/DL (7-18) Creatinine 1.43 MG/DL (0.50-1.00) 1.28 MG/DL (0.50-1.00) 1.09 MG/DL (0.50-1.00) Random Glucose 128 MG/DL (74-106) Aspartate Amino Transf (AST/SGOT) 9 U/L (15-37) 11 U/L (15-37) Total Bilirubin 1.2 MG/DL (0.2-1.0) Potassium Level 3.1 MEQ/L (3.5-5.1) Carbon Dioxide Level 19.5 MEQ/L (21.0-32.0) Estimat Glomerular Filtration Rate 37 ML/MIN (>89) 42 ML/MIN (>89) 51 ML/MIN (>89) Troponin I LESS THAN 0.02 NG/ML LESS THAN 0.02 NG/ML LESS THAN 0.02 NG/ML Lipase 446 U/L (73-393) Calcium Level 8.2 MG/DL (8.5-10.1) Chloride Level 108 MEQ/L (98-107) Magnesium Level 2.6 MG/DL (1.5-2.5) Imaging Last Impressions Chest X-Ray 08/14/172053 Signed Impressions: CONCLUSION: 1. 9 mm calcified granuloma at the left lung base. 2. Stable compared to prior dated 01/17/2017. 3. No acute abnormality. PE at Discharge General: NAD, AAox3 Chest: CTA Cardiac: Remigio, regular Abd: +BS, soft ND, mild epigastric tenderness Ext: No edema Hospital Course Abdominal pain/Nausea/Vomiting Episodic Diarrhea Hx of gastric sleeve surgery in 2016 - Pt is a 61 y/o female with HTN, Hyperlipidemia, hypothyroidism, YUNIOR on CPAP, GERD, and hx of gastric sleeve surgery in 2016. Pt began having epigastric abdominal pain, N/V and diarrhea around 6 days prior to admission. She only had a few episodes of diarrhea and this resolved on the first day but the N/V and abd pain persisted. She was seen in the ED on 08/13/[address] Abd/pelvis which noted minimal inflammatory changes about the base of the cecum with a normal appearing appendix. She was d/c from the ED that day as she felt clinically improved with IVF and antiemetics/pain control but symptoms returned. She had been unable to tolerate any PO intake in several days. She had noted acute kidney injury and multiple electrolyte abnormalities at admission. She had a similar admission to [facility] in 12/2016 and underwent EGD on 01/19/17 --> Class A esophagitis, gastritis, portal gastropathy. She had a normal GB US and HIDA scan at that time. GI was consulted at admission. Pt underwent EGD/colonoscopy (08/16) --> LA Class A esophagitis, erythematous gastritis in the gastric body and gastric antrum, hiatal hernia, a flat polyp ranging between 3-5mm in size was found in the ascending colon, small abnormal mucosa was found at the cecum, medium internal hemorrhoids, and external hemorrhoids. No dilation required. Pt developed N/V and dry heaving after drinking orange juice after her EGD/colonoscopy yesterday. She continued to be nauseated with dry heaves for the afternoon and evening time yesterday. Pt was given Zofran IV but this did not help her symptoms and family requested Reglan IV which she was given one dose of yesterday evening with improvement in her N/ V and tolerated regular consistency foods the morning of discharge. She has not had any further nausea or vomiting since late last night. Its not clear if there may be some delayed gastric empting occurring related to these episodes of N/V/D and abdominal pain. Pt will be continued on Protonix 40mg po daily and she was given a prescription for Relgan 5mg po Q8H PRN. She will need to followup as an outpt with GI in 2 weeks to followup on her biopsies. Could consider a gastric emptying scan as an outpt. Chest pain, resolved Sinus bradycardia - Pt was admitted to [facility] on 08/14/17 with complaints of epigastric abdominal pain , intractable N/V and chest pain. Pt had serial CE which were negative. EKG at admission noted sinus bradycardia, U waves, premature junctional contractions. Previous EKGs were reviewed and the bradycardia and U waves are similar to EKG findings in12/2016. Cardiology was consulted at admission and they felt the premature junctional contractions, which are the only new finding on the EKG, is likely due to increased vagal tone from dehydration/electrolyte changes. Pt with noted sinus remigio on telemetry. Outpt vitals noted pulse rate typically in the 50-70s. On telemetry it was noted that during admission, overnight her HRs decrease into the 40's and family is very concerned about this. The patient has not been symptomatic of the bradycardia and denies any dizziness, syncope or weakness. She has been ambulating to the bathroom without difficulty. Pts chest pain has resolved with IVF and supportive care Cardiology has signed off. The case was discussed with Dr. Galicia, the pts PCP, to update him and pt will followup with Dr. Galicia in 7-10 days Pt will followup with Cardiology as well, either [facility] or she had previously seen Dr. Eastman but it has been at least 5 years since she has seen her. Hypokalemia - Improved with IVF Type 2 diabetes mellitus - Pt was given NovoLog sliding scale during admission. She will continue her home dose of Metformin upon discharge. Hypertension - Pt has not been able to tolerate any oral intake or pills for several days and her BP was quite high at admission. This has improved and pt was resumed on her home dose of Norvasc 2.5mg po daily. This will be continued at discharge. Pt Condition on Discharge: Stable Discharge Disposition: Discharge Home Discharge Instructions DIET: Follow Instructions for: Heart Healthy Diet Activities you can perform: Regular-No Restrictions Follow up Referrals: Cardiology - 2 Weeks with Delaney Eastman MD Gastroenterology - 2 Weeks with Leslye Hernandez MD PCP Follow-up - [address] Galicia New Medications: Metoclopramide (Reglan) 5 Mg Tab 5 MG PO Q6HR PRN for NAUSEA OR VOMITING, #10 TAB 0 Refills Pantoprazole (Protonix) 40 Mg Tab 40 MG PO DAILY for Reflux, #30 TAB 0 Refills Continued Medications: Amlodipine (Amlodipine) 10 Mg Tab 2.5 MG PO DAILY for Blood Pressure Management, #30 TAB 0 Refills Levothyroxine (Levothyroxine) 50 Mcg Tab 50 MCG PO DAILY for Thyroid, #30 TAB 0 Refills Metformin (Metformin) 500 Mg Tab 500 MG PO DAILY for Blood Sugar Management, #30 TAB 0 Refills With a meal Discontinued Medications: Ondansetron Odt (Zofran Odt) 4 Mg Tab 4 MG SL Q6HR PRN for Nausea/Vomiting, #7 TAB 0 Refills Janette Lenz Aug 17, 2017 15:05
[2017-08-18] MEDS ORDERED: ZOFR4TAB3 SL (16:33)
[2017-08-18] MEDS ORDERED: LEVS0.124 SL (16:33)
== END 2017-08-17 15:29 | disposition home or self-care (01) ==
LOC: NEPC 20:32 → NEDA 22:42 → NEPHCDU 23:43
PROVIDERS: ADMIT Hospitalist; ATTEND Hospitalist
DX: K52.89 Other specified noninfective gastroenteritis and colitis (principal); K29.50 Unspecified chronic gastritis without bleeding; K21.0 Gastro-esophageal reflux disease with esophagitis; K64.4 Residual hemorrhoidal skin tags; K64.8 Other hemorrhoids; K44.9 Diaphragmatic hernia without obstruction or gangrene; R10.10 Upper abdominal pain, unspecified; R11.2 Nausea with vomiting, unspecified; R19.7 Diarrhea, unspecified; R68.83 Chills (without fever); R61 Generalized hyperhidrosis; R06.02 Shortness of breath; E11.9 Type 2 diabetes mellitus without complications; K76.0 Fatty (change of) liver, not elsewhere classified; I10 Essential (primary) hypertension; G47.33 Obstructive sleep apnea (adult) (pediatric); E78.5 Hyperlipidemia, unspecified; E03.9 Hypothyroidism, unspecified; M51.36 Other intervertebral disc degeneration, lumbar region; I49.3 Ventricular premature depolarization; F41.9 Anxiety disorder, unspecified; F32.9 Major depressive disorder, single episode, unspecified; E66.9 Obesity, unspecified; E55.9 Vitamin D deficiency, unspecified
CPT/HCPCS: 00813; 43239; 45380; 71045; 80048; 80053; 82550; 82948; 83690; 83735; 83880; 84443; 84484; 85025; 85610; 85730; 88305; 88312; 93005; 96361; 96365; 96372; 96375; 96376; 99285; C9113; G0378; J1650; J2270; J2405; J2765; J3475; J3480; J7030; J7042